=== PATIENT | male | born 1930 | race Caucasian/White ===

== ENCOUNTER 2016-10-01 10:58 | Inpatient (IN) | payer MEDICARE, OTHER ==
[~2016-10-01] VITALS: Ht 182.9 cm; Wt 96.9 kg
[2016-10-01] VITALS (9 sets, daily range): BP systolic 115–170; BP diastolic 58–91; PULSE 53–72; RESP 13–20; O2SAT 95–100
--- NOTE | 2016-10-01 10:34 | ED.REPORT ---
HPI-Chest Pain 40 and Over Date of Service October 01, 2016 ED Provider: Dr. Parish 86 y/o male with a hx of HTN, coronary disease and hyperlipidemia presents to the ED via EMS complaining of non-radiating chest pressure, onset 0700 today.The pt reports he fell asleep in his chair and woke up with the pain and extremely fatigued. The pt went to his doctor today for pre-surgery hernia repair consult when they took an EKG and found a new arrhythmia, LBBB. The EMS administered two doses of Nitroglycerin en route, after which his pain resolved. He states his pain was 3/10 this morning.Associated sx include fatigue and mild pain with deep breathing. He denies any modifying factors of the pain, palpitations, diaphoresis, nausea, dizziness and lightheadedness. He also has right leg edema, but that is not new. The pt reports he took TUMS, which did not improve his sx.He states he has been normal prior to today and has been able to carry out his daily activities. The pt took an Aspirin this morning. Nursing Notes Stated Complaint: CHEST PAIN Nursing Notes Reviewed: Yes ([employer], [employer] not reconciled) Allergies: Coded Allergies: No Known Allergies (Unverified , 10/01/16) Scheduled Aspirin Chew (Aspirin Chew) 81 Mg Chew 81 MG PO HS Atorvastatin (Lipitor) 10 Mg Tab 10 MG PO DAILY Carvedilol (Carvedilol) 25 Mg Tablet 25 MG PO BID Levothyroxine (Synthroid) 125 Mcg Tablet 125 MCG PO DAILY Lisinopril (Lisinopril) 20 Mg Tablet 20 MG PO DAILY Omeprazole (Omeprazole) 20 Mg Tablet.dr 20 MG PO BID Scheduled PRN Acetaminophen (Acetaminophen) 500 Mg Tablet 500 MG PO BID PRN PRN For Pain General Time Seen by MD: 10:34 Chief Complaint Chest pain Hx Obtained From: Patient Arrived By: Ambulance Sudden in Onset?: Yes Onset Occurred: 5 - 8 hours ago Location: : Chest left Quality: Painful Radiation: : Does not radiate Severity: Current: No pain currently Severity: Maximum: No pain Recent Healthcare: Recent doctor visit Similar Sx Previous: Yes Risk Factors )( CAD Risk Stratification Hypertension Risk factors reviewed Past Medical History Past Medical History Coronary disease with reportedly abnormal Lexiscan stress test April 2015 with a moderate sized area of ischemia involving the inferior wall, EF 52% Hypertension Hyperlipidemia New-onset left bundle branch block September 2016 sleep apnea on CPAP Hypothyroidism GERD History of "metabolic syndrome" Past Surgical History Cholecystectomy Hernia x2 Knee and foot ankle Smoking History Former Smoker Social History Drug Use: Denies drug use Other Social History: Good social support, Ambulatory Status Independent Review of Systems Constitutional: Reports: Fatigue Respiratory: Reports: Shortness of breath Cardiovascular: Reports: Chest pain, Denies: Palpitations GI: Denies: Nausea Skin: Denies Diaphoresis Neurologic: Denies: Dizziness, Lightheaded Complete sys rev & neg: except as marked. Physical Exam Initial Vital Signs Vital Signs (First) Date Time Temp Pulse Resp B/P Pulse Ox O2 Delivery O2 Flow Rate FiO2 10/01/16 11:05 36.5 53 18 167/91 100 Room Air Initial VS: Reviewed, Vital signs normal Head / Eyes: Atraumatic, Normocephalic, PERRL Neck: Supple, Full range of motion Extremities: Vascular intact, Neuro intact, No tenderness Skin: Warm, Dry, No cyanosis Neurologic: Alert, Oriented, Nonfocal General/Constitutional: Awake, Alert, No acute distress, Cooperative Respiratory / Chest: Atraumatic, Breath sounds NL, Breath sounds = bilat, No respiratory distress, No rales, No rhonchi, No wheezing Cardiovascular: Heart rate NL, Regular rhythm, Heart sounds NL, No gallop, No murmurs, No rubs Abdomen: Atraumatic, Soft, Non-tender Interpretation & Diagnostics PROCEDURE: US VEINOUS LEG DUPLEX UNILATERAL, RIGHT IMPRESSION: No deep venous thrombosis identified within the right lower extremity. Dictated by: Xavier Holcomb RRA Interpreted: Cee Nassar MD on 10/01/2016 at 12:36 Transcribed by: MAYTE on 10/01/2016 at 12:36 Lab Results Interpretation Result Diagram: 10/01/16 1215 10/01/16 1215 Test 10/01/16 12:15 White Blood Count 6.9th/mm3 (3.8-10.1) Red Blood Count 4.09mil/mm3 (4.40-5.80) Hemoglobin 12.5g/dL (13.8-17.2) Hematocrit 38.5% (41.0-50.0) Mean Corpuscular Volume 94.1fL (81-100) Mean Corpuscular Hemoglobin 30.6pg (27.0-35.0) Mean Corpuscular Hemoglobin Concent 32.5% (32.0-37.0) Red Cell Distribution Width 12.4% (12.3-15.4) Platelet Count 234bil/L (150-400) Neutrophils (%) (Auto) 63.0% (40-74) Lymphocytes (%) (Auto) 26.3% (14-46) Monocytes (%) (Auto) 8.0% (4-12) Eosinophils (%) (Auto) 2.2% (0-5) Basophils (%) (Auto) 0.4% (0-3) Sodium Level 139mEq/L (134-144) Potassium Level 5.0mEq/L (3.5-5.2) Chloride Level 104mEq/L (97-108) Carbon Dioxide Level 24mmol/L (18-29) Blood Urea Nitrogen 21mg/dL (8-27) Creatinine 1.12mg/dL (0.76-1.27) Estimat Glomerular Filtration Rate 66mL/min (>59) Glucose Level 108mg/dL (60-99) Calcium Level 9.2mg/dL (8.5-10.1) Magnesium Level 1.9mg/dL (1.6-2.6) Total Bilirubin 0.4mg/dL (0.0-1.2) Aspartate Amino Transf (AST/SGOT) 15U/L (0-50) Alanine Aminotransferase (ALT/SGPT) 9U/L (0-44) Alkaline Phosphatase 74U/L (25-160) Troponin T 0.010ug/L (0.0-0.011) Total Protein 6.5g/dL (6.4-8.4) Albumin 3.5g/dL (3.4-5.0) Hold José Top Tube Received (Received) Lab Results Interpretation: CBC normal CMP normal Troponin #1 negative ECG Interpretation ECG Interpretation: Sinus bradycardia. Rate 49 Left bundle branch block No changes as compared to pre-hospital EKG, which is the only EKG availble for comparison. Time: 11:19 Interpreted by: ED physician X-Ray Chest Interpretation Chest Xray Interpretation: IMPRESSION: Unusual appearance of the right lung with obscuration of the right heart border. While this appearance may be within normal limits for this patient, it may be seen in the setting of extensive atelectasis or lobar collapse. A standard 2-view chest radiograph would be helpful for better evaluation. Dictated by: Guerrero Veronica M.D. on 10/01/2016 at 11:10 Approved by: Guerrero Veronica M.D. on 10/01/2016 at 11:13 View: Portable, 1 view Interpretation / Wet Read by: Interpret - Radiologist Re-Eval/Medical Decision Med Decision/Clinical Course This is an 86-year-old male with known coronary disease followed by Dr. Worthington who lives on [facility] he was being evaluated preoperatively for a hernia repair, when on Thursday he had a EKG that demonstrated a new left bundle. At that time the plan was cancellation of the procedure, with cardiology referral planned. However then now developed intermittent bouts of left-sided chest discomfort that did not initially resolved to treatment at home, but resolved with nitroglycerin by EMS 2, and reoccurred in the emergency department with resolution with nitroglycerin 1 here. he otherwise appears well in no visible distress. He denies clear exertional component. His EKG does demonstrate and he a left bundle branch block. Not have any access to prior cardiograms. She does not meet Scar[place]orsi criteria. Patient nitro paste applied, as received aspirin prior to arrival by EMS. His HEART score places in a moderate risk so plan is admission for serial enzymes and further management. He did have a recurrence of his chest discomfort in the department, following resolution by nitroglycerin by EMS, and again it resolved with nitroglycerin use in the department. The patient is being admitted for continued management. He has had aspirin prior to arrival. The case is discussed with the hospitalist, who plans to talk with the webmethods consultant directly. Source of Hx: Old records (none in EMR) Time of Eval: 11:30 Patient Status: Condition improved Re-Evaluation/Progress Note: Rechecked pt. The pt reports his chest pain and discomfort has now resolved. Discussed lab, imaging results and plan to admit. Pt understands and agrees with the plan for admission. All questions addressed. Consultation : Referral / Consult Name: Chantell Alcantara Shanta DOMINGO Call Returned at: 13:35 Patch Worker: Will see patient, Agrees with eval, Agrees with plan, Accepts admit Differential Diagnosis: Positive: Chest pain, acute, Negative: Asthma exacerbation, Cholecystitis, Cholelithiasis, Congestive heart failure, Dysrhythmia, Esophageal rupture, Gun shot wound chest, Musculoskeletal pain, Pleurisy, Pneumomediastinum, Pneumonia, Pneumothorax, Pulmonary edema, Pulmonary embolism, Stab wound chest Counseled Regarding: Diagnosis, Lab results, Need for admission Discharge & Departure Primary Impression: Chest pain Chest pain type: unspecified Qualified Code: R07.9 - Chest pain, unspecified Additional Impression: New onset left bundle branch block (LBBB) Disposition: ADMITTED TO HOSPITAL Discharge Condition All VS Reviewed: Yes Scribe Attestation Portions of this note were transcribed by Tami Clinton. I, , personally performed the history, physical exam and medical decision-making;I reviewed and confirmed the accuracy of the information in the transcribed note. Signed by Paul Galvan. 10/01/16 1335 Tyler Parish MD October 01, 2016 10:34 Tami Clinton October 01, 2016 10:36
[2016-10-01] MEDS ORDERED: Nitroglycerin 2% 1 Gm Ointment TOPICAL SCH ×2 (11:15→13:25)
[2016-10-01] MEDS ORDERED: OMEP20CA11 PO (11:38)
[2016-10-01] MEDS ORDERED: ACET-171 PO (11:38)
[2016-10-01] MEDS ORDERED: ASPI81TA3 PO (11:38)
[2016-10-01] MEDS ORDERED: CARV25TA2 PO (11:38)
[2016-10-01] MEDS ORDERED: LEVO125T2 PO (11:38)
[2016-10-01] MEDS ORDERED: ATRV10T PO (11:38)
[2016-10-01] MEDS ORDERED: OMEP20TA86 PO (11:38)
[2016-10-01] MEDS ORDERED: LISI-567 PO (11:38)
--- NOTE | 2016-10-01 12:20 | DRSVH ---
PROCEDURE: X-RAY CHEST ONE VIEW, PORTABLE ([id number]) INDICATIONS: CHEST PAIN TECHNIQUE: One view of the chest was acquired. COMPARISON: None. FINDINGS: Surgical changes and devices: None. Lungs and pleura: The right heart border is obscured. No large area of consolidation or pleural effu fermin is evident. No pneumothorax is appreciated. Mediastinum: Mediastinal contours appear normal. Heart size is normal. Bones and chest wall: No suspicious bony lesions. Overlying soft tissues appear unremarkable. IMPRESSION: Unusual appearance of the right lung with obscuration of the right heart border. While t his appearance may be within normal limits for this patient, it may be seen in the setting of extensi ve atelectasis or lobar collapse. A standard 2-view chest radiograph would be helpful for better vlad luation. Dictated by: Guerrero Veronica M.D. on 10/01/2016 at 11:10 Approved by: Guerrero Veronica M.D. on 10/01/2016 at 11:13
[2016-10-01 12:22] LABS: BASOPHILS % (AUTO) 0.4 % (0-3); EOSINOPHILS % (AUTO) 2.2 % (0-5); Mean Corpuscular Hemoglobin 30.6 pg (27.0-35.0); Mean Corpuscular Volume 94.1 fL (81-100); Platelet Count 234 bil/L (150-400)
--- NOTE | 2016-10-01 12:36 | DRSVH ---
PROCEDURE: US VEINOUS LEG DUPLEX UNILATERAL, RIGHT INDICATIONS: RLE swelling TECHNIQUE: Real-time imaging, as well as color and pulse Doppler interrogation, were performed of the lower extr emity deep veins from the inguinal ligament to the popliteal fossa. COMPARISON: None. FINDINGS: The deep veins are normally compressible, and free of intraluminal thrombus. Color and pu lse Doppler demonstrate normal phasic intraluminal flow. There is normal augmentation response to di stal compression maneuver. IMPRESSION: No deep venous thrombosis identified within the right lower extremity. Dictated by: Xavier Holcomb [facility] Interpreted: Cee Nassar MD on 10/01/2016 at 12:36 Transcribed by: MAYTE on 10/01/2016 at 12:36 Approved by: Cee Nassar M.D. on 10/01/2016 at 17:48
[2016-10-01 12:58] LABS: TROPONIN T 0.01 ug/L (0.0-0.011)
[2016-10-01 13:09] LABS: Magnesium 1.9 mg/dL (1.6-2.6)
[2016-10-01] MEDS ORDERED: 0.9% Sodium Chloride 500 ML IV ONE (13:25)
[2016-10-01] MEDS ORDERED: Alum-Mag Hydrox-Simeth 30 mL Suspension PO PRN ×2 (14:00→17:10)
[2016-10-01] MEDS ORDERED: Ondansetron 2 mg/mL 2 mL Inj IVPUSH PRN ×2 (14:00→17:10)
[2016-10-01] MEDS ORDERED: Heparin 5,000 Unit/mL Inj IVPUSH ONE ×2 (14:35→15:05)
[2016-10-01] MEDS ORDERED: Heparin 25K Unit/500mL 0.45 NS 25,000 UNIT in IV Premix 1 EACH IV ONE ×2 (14:35→15:05)
[2016-10-01] MEDS ORDERED: diphenhydrAMINE 25 mg Capsule PO ONE (14:55)
[2016-10-01 15:21] LABS: APPEARANCE,URINE CLEAR (CLEAR,HAZY); COLOR,URINE YELLOW (YELLOW); OCCULT BLOOD,URINE NEGATIVE (NEGATIVE); PH,URINE 5.5 (5.0-8.0); UROBILINOGEN,URINE NORMAL (NORMAL)
--- NOTE | 2016-10-01 15:25 | CONS ---
[address] [address] CONSULTATION REPORT PATIENT: ANDRIY WILLIS : 1930 MR#: [id number] ADMIT: 10/01/2016 JOB ID: [id number] DATE OF SERVICE: 10/01/2016 CARDIOLOGY CONSULTATION: REASON FOR CONSULT: Hospitalist team asked me to see this patient regarding chest pain, left bundle branch block. CHIEF COMPLAINT: Chest pain. PRESENT HISTORY: This 86-year-old pleasant male who is a patient of Dr. Lawson from Cardiology, who has a known history of abnormal perfusion study in April 2015 for [id number] ischemia of the inferolateral wall with LV ejection fraction about 52%, on medical management at present, essential hypertension, hyperlipidemia, obstructive sleep apnea, got admitted because of episode of chest pain which happened this morning about 7 o'clock after him taking shower. It was pressure type. On a scale of 1-10, it was about 3-4 in intensity. It lasted longer duration. It did not get better by rest. He was feeling fatigued and tired. They decided to call 911. EMS gave him sublingual nitroglycerin which he responded to. He was placed on nitropaste. His chest pain subsided. At present, he is in the emergency department. He is not having any more chest pain. Denies any worsening with deep breathing. No fever, cough, expectoration. No nausea, vomiting, sweating but had some shortness of breath. According to the patient, he has bilateral inguinal hernia surgery and has had right inguinal hernia surgery in the past with recurrence. This last Thursday he was seen by PCP regarding preop clearance for inguinal hernia surgery and found to have left bundle branch block which is new. 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 The patient denies any stroke-like symptoms, PND, orthopnea or claudication or abdominal pain or active wheezing or hemoptysis or bleeding. According to him, he has bilateral inguinal hernia but he is not very symptomatic. He is not having incarcerated inguinal hernia. Denies any other upcoming surgeries. No bleeding issues. PAST MEDICAL HISTORY: History of abnormal perfusion study in April 2015 with [id number] ischemia of inferior lateral wall with LV ejection fraction 52% with essential hypertension, hyperlipidemia, obstructive sleep apnea, DJD, metabolic syndrome, GERD, hypothyroidism. PAST SURGICAL HISTORY: As stated above. ALLERGIES: No known allergies. MEDICATIONS AT HOME: He was on: 1. 81 mg aspirin. 2. Atorvastatin 10 mg daily. 3. Carvedilol 25 mg b.i.d. 4. Synthroid 125 mcg daily. 5. Lisinopril 20 mg daily. 6. Omeprazole 20 mg b.i.d. SOCIAL HISTORY: He used to smoke in the remote past, but at present, he is not smoking. No alcohol abuse. FAMILY HISTORY: Positive for coronary artery disease. REVIEW OF SYSTEMS: Ten point review of systems were obtained. They are negative except as stated above. PHYSICAL EXAMINATION: Blood pressure 117/59, heart rate 53, respiratory rate 15, oxygen saturation 95% and no significant anemia, jaundice. Neck: No apparent JVP or carotid bruit. Chest: No obvious crepitation or rhonchi. CVS: S1 appears normal. P2 paradoxically split. No S3. No S4. I do not appreciate any significant murmur other than very soft ejection systolic murmur at the base. Abdomen: No obvious pulsatile mass felt. Umbilicus is everted. No obvious hepatosplenomegaly. Extremities: No significant pedal edema. Vascular: No evidence of critical limb ischemia. [employer]: Alert, oriented to time, place and person. No focal motor or sensory deficit. LABORATORIES: Sodium 139, potassium 5.0, BUN 21, creatinine 1.12, magnesium 1.9 with normal bilirubin, AST, ALT. Troponin T 0.010. WBC 6.9, hemoglobin 12.5, platelets 234. EKG in the ED done today at about 11:19 a.m. revealed sinus rhythm with sinus bradycardia rate 49 with first-degree AV block with MO interval about 2.04 msec with underlying left bundle branch block which was seen on EKG on September 29, 2016 as well. Prior EKG revealed left anterior fascicular block. Lower extremity venous Doppler was negative for DVT. ASSESSMENT AND PLAN: 1. Unstable angina with history of abnormal perfusion study in April 2015 for [id number] ischemia of inferior lateral wall. 2. Left bundle branch block which is a new finding. 3. History of left anterior fascicular block in the past. 4. Essential hypertension. 5. Hyperlipidemia. 6. Obstructive sleep apnea. 7. Hypothyroidism. 8. Metabolic syndrome. 9. GERD. 10. Bilateral inguinal hernia. At present, the patient is chest pain free. His blood was drawn at around 12:15 p.m. He had a chest pain about 7 o'clock. His troponin first set normal. I do not think that left bundle branch block is a marker of anterior wall MS. I think it is a progression of left anterior fascicular block which was seen in the past. He is 86 years old. Likely, he has an underlying conduction problem. On top of that, he was on beta fabiano. However, he has known coronary artery disease based on abnormal perfusion study as well as ongoing risk factors. In view of symptoms, abnormal perfusion study and all the risk factors and age, left heart catheterization is recommended. Discussed the plan with the patient and his . They are willing to undergo invasive procedure in anticipation of revascularization. According to the patient, he can wait six months to one year for inguinal hernia surgery. He is not very symptomatic. He understands that if he gets drug-coated stent, he will not be able to have inguinal hernia surgery soon. Benefits and risks of left heart catheterization which include, but not limited to, risk of bleeding, groin complication, myocardial infarction, stroke, , renal insufficiency, peripheral vascular complication, etc. in details discussed with the patient and his . They verbalized understanding. All the questions were answered. I spoke to our turbinated bone grinder, Dr. Martin, as well. He will be available. Further plan will be based on the result of above-mentioned diagnostic tests. Will also get 2D echo. Meanwhile, we will recommend treating medically. If he gets stent, then he will need dual anti-platelet therapy. Consider anticoagulation. Because of sinus bradycardia, we are holding beta fabiano. However, down the road, if heart rate permits, we will consider beta fabiano. We will consider high intensity statin. Thanks for the cardiology consult. TOTAL TIME SPENT: Today including reviewing old charts and coordinating care as well about 75 minutes.
[2016-10-01 16:46] LABS: Creatine Kinase 61 U/L (21-232)
[2016-10-01] MEDS ORDERED: Senna-Docusate 8.6-50 mg Tablet PO PRN (17:10)
[2016-10-01] MEDS ORDERED: Atropine 1 mg/10 mL (Code) Syringe IVPUSH PRN (17:10)
[2016-10-01] MEDS ORDERED: Polyethylene Glycol (PEG) 17 Gm Powder PO PRN (17:10)
--- NOTE | 2016-10-01 17:56 | NUR ---
ADMIT PATIENT ADMITTED TO ROOM 2021. HE DENIES ANY CHEST DISCOMFORT. VITAL SIGNS STABLE. PATIENT'S AT BEDSIDE. PATIENT GAVE CONSENT FOR INFORMATION TO BE GIVEN TO DAUGHTER OVER PHONE. DAUGHTER LINDA DID CALL AND WAS GIVEN AN UPDATE. HOSPITALIST AND ADMINISTRATIVE OFFICER SEEING PATIENT NOW. PLAN FOR HEART CATH. TOMORROW.
--- NOTE | 2016-10-01 19:43 | PCM.HPMED ---
Subjective Date of Service October 01, 2016 Primary Provider: Admitting Physician: Chantell Alcantara DO Primary Care Physician: Vin Goddard MD Attending Physician: Chantell Alcantara DO Admit Status: From the Emergency Department Chief Complaint: "chest pain" History of Present Illness: Mr. Powell is in 86-year-old male with history of hypertension, coronary artery disease, hyperlipidemia, obstructive sleep apnea, hypothyroidism, and gastroesophageal reflux disease who presented to the emergency department via EMS complaining of non-radiating 3/10 chest pressure that started around 7:00 this morning and was steady until around 3 PM today. He states that he took a shower this morning and then started to feel fatigued and not like himself. He then sat in his chair and that is when the chest pressure started in the left pectoralis area. He also describes it as an ache. He states that as time went on the pain got worse. He had associated fatigue and dyspnea. He did not have palpitations, nausea, vomiting, diaphoresis, presyncopal episode, syncope, or increased swelling in his legs. He has had chest pain similar to this in the past, but this time it was different because he felt like he could not lift his arms up. His arms felt heavy. In the past, the chest pain he felt did not last this long either. He reports that about a year ago he had a workup for his heart that showed that the bottom part of his heart had blockages. His primary engraver hand soft metals is Dr. Lawson. He is going to see Dr. Lawson today for presurgical consultation because his primary care provider did an EKG on Thursday that showed a new left bundle branch block. He reports that he no longer has chest pain after receiving multiple doses of nitroglycerin. He does not have a headache, changes in vision, nasal congestion, sore throat, cough, abdominal pain, diarrhea, constipation, hematuria, hematochezia, melena, or numbness. Prior to coming to the emergency department, he received 2 doses of nitroglycerin by EMS and his pain resolved. In the emergency department, his chest pain returned but again was relieved by nitroglycerin. He had an aspirin prior to arrival to the hospital. Review of Systems: A comprehensive review of systems was conducted with the patient and found to be negative except as above in the History of Present Illness. Allergies Coded Allergies: No Known Allergies (Unverified , 10/01/16) Home Medications Aspirin Chew (Aspirin Chew) 81 Mg Chew 81 MG PO HS Atorvastatin (Lipitor) 10 Mg Tab 10 MG PO DAILY Carvedilol (Carvedilol) 25 Mg Tablet 25 MG PO BID Levothyroxine (Synthroid) 125 Mcg Tablet 125 MCG PO DAILY Q HS Lisinopril (Lisinopril) 20 Mg Tablet 20 MG PO BID Omeprazole (Omeprazole) 20 Mg Tablet.dr 20 MG PO BID Acetaminophen (Acetaminophen) 500 Mg Tablet 500 MG PO BID PRN PRN For Pain PMH Coronary artery disease based on abnormal Lexiscan stress test in April 2015 , ejection fraction 52% Hypertension Hyperlipidemia Left bundle branch block, new diagnosis Obstructive sleep apnea on CPAP Hypothyroidism Gastroesophageal reflux disease Surgical History Cholecystectomy with a second repair Right inguinal hernia repair twice Right knee and foot 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 External ears without defect. Pupils equal, round, and reactive to light and accommodation. Anicteric sclerae, moist conjunctivae, and no lid lag. Oropharynx free of erythema and cobble stoning with moist mucosa. Neck: Supple with full range of motion. No jugular venous distension. No lymphadenopathy or thyromegaly. Cardiovascular: Regular rate and rhythm with II/ systolic ejection murmurs with radiation to neck, No rubs or gallops appreciated Pulmonary: Clear to auscultation bilaterally with no crackles, wheezes, or rhonchi. Normal respiratory effort with no use of accessory muscles. Abdomen: Umbilical hernia, which is reducible and does not have any erythema or warmth. Bowel tones present. Soft, nontender, nondistended. No hepatosplenomegaly appreciated. Extremities: Trace right pitting lower extremity edema to mid anterior leg. No clubbing, cyanosis, or lymphadenopathy appreciated. Skin: Normal temperature, turgor, and texture; no rash, ulcers, or subcutaneous nodules appreciated. Neurological: Cranial nerves grossly intact. Normal muscle strength, tone, and bulk. Coordination and sensory function within normal limits. No known gait impairment. Psychiatric: Normal mood and affect. Alert and oriented to person, place, and time. Lab and Diagnostics Result Diagram: 10/01/16 1215 10/01/16 1215 X-Rays, CTs and MRIs PROCEDURE: X-RAY CHEST ONE VIEW, PORTABLE IMPRESSION: Unusual appearance of the right lung with obscuration of the right heart border. While this appearance may be within normal limits for this patient, it may be seen in the setting of extensive atelectasis or lobar collapse. A standard 2-view chest radiograph would be helpful for better evaluation. Approved by: Guerrero Veronica M.D. on 10/01/2016 at 11:13 12-lead ECG Sinus bradycardia with left bundle branch block Additional Diagnostics: PROCEDURE: US VEINOUS LEG DUPLEX UNILATERAL, RIGHT IMPRESSION: No deep venous thrombosis identified within the right lower extremity. Approved by: Cee Nassar M.D. on 10/01/2016 at 17:48 Assessment & Plan Mr. Powell is in 86-year-old male with history of hypertension, coronary artery disease, hyperlipidemia, obstructive sleep apnea, hypothyroidism, and gastroesophageal reflux disease who presented to the emergency department via EMS complaining of non-radiating 3/10 chest pressure that started around 7:00 this morning and was steady until around 3 PM today. Unstable angina, acute, present on admission, - History of abnormal perfusion study in April 2015 for [id number] ischemia of inferior lateral wall - Patient presented with acute worsening chest pain, which was relieved by nitroglycerin. EKG showed a new left bundle-branch block. Troponin was negative. - Right lower extremity venous duplex ultrasound showed no DVT. - Hemoglobin A1c and lipid panel ordered and pending - Patient was given a full dose aspirin by EMS and a loading dose of Plavix in the hospital - Nitroglycerin as needed for chest pain and morphine as needed for chest pain - Heparin drip per protocol - Aspirin 81 mg daily, atorvastatin 40 mg daily at bedtime, lisinopril 20 mg twice a day - Hold patient's home carvedilol due to his bradycardia, but will monitor heart rate and resume carvedilol when heart rate stable - Cardiology consulted and following. Their time and recommendations are appreciated. Patient is scheduled for left heart catheterization with coronary angiogram tomorrow. Echocardiogram ordered for tomorrow. - NPO after midnight Essential hypertension, chronic. - Continue lisinopril 20 mg twice a day as - Hold carvedilol for now Obstructive sleep apnea on CPAP, chronic. - Patient is unable to get his CPAP to the hospital from home - Put patient on a hospital CPAP for the night Hyperlipidemia, chronic. - Lipid panel pending - Increase atorvastatin to 40 mg at bedtime Hypothyroidism, chronic. - TSH within normal limits - Continue levothyroxine 125 g in the evening Gastroesophageal reflux disease, chronic. - Continue omeprazole 20 mg twice a day Bilateral inguinal hernia, chronic. Obscured right heart border on chest x-ray. -2 view chest x-ray tomorrow after procedure for further evaluation Acetaminophen as needed for pain or fever. Maalox as needed for heartburn MiraLAX and senna available as needed for constipation An as needed for nausea and vomiting CODE STATUS: CPR, cardioversion, defibrillation, BiPAP, medications, and fluids. DO NOT INTUBATE. Patient is admitted under observation status with expected length of stay less than 2 midnights due to risk of adverse event. GI Prophylaxis: Proton Pump Inhibitor VTE Prophylaxis: Other (heparin drip) Resuscitation Status: Limited Interventions Limited Interventions: Compressions, Cardioversion/Defibrillation, BiPAP, Medications and IV Fluid (DO NOT INTUBATE) Attending Statement The patient was seen and examined together with Dr. Godfrey on 10/01/2016 and I agree with the history, exam and plan as outlined in the note above. . copies to: Uri Lawson MD, Marissa L DO October 01, 2016 19:43 Imer Lira MD October 03, 2016 07:59
[2016-10-01] MEDS ORDERED: Heparin 25K Unit/500mL 0.45 NS 25,000 UNIT in IV Premix 1 EACH IV SCH (20:05)
--- NOTE | 2016-10-01 20:08 | NUR ---
Case Management: GERMANIA explained to patient at 1917, all questions answered. Signed original placed in chart, copy given to patient. Pt refused Medicare Part D Drug info stating he has . Yulisa Dodge RN
[2016-10-01] MEDS: Pantoprazole 20 mg ER24 Tablet PO SCH (21:16)
[2016-10-01 21:20] LABS: TROPONIN T < 0.010 ug/L (0.0-0.011)
[2016-10-01] MEDS: Heparin 5,000 Unit/mL Inj IVPUSH PRN (21:21)
[2016-10-01 21:28] LABS: Creatine Kinase 59 U/L (21-232)
[2016-10-02] VITALS (22 sets, daily range): BP systolic 109–171; BP diastolic 47–91; PULSE 51–85; RESP 13–24; O2SAT 92–100
[2016-10-02] MEDS: 0.9% Sodium Chloride 1,000 ML IV SCH ×4 (00:04→20:54)
[2016-10-02 02:38] LABS: BASOPHILS % (AUTO) 0.4 % (0-3); EOSINOPHILS % (AUTO) 2.5 % (0-5); MONOCYTES % (AUTO) 8.2 % (4-12); Mean Corpuscular Hemoglobin 31.3 pg (27.0-35.0); Mean Corpuscular Volume 93.9 fL (81-100); NEUTROPHILS % (AUTO) 62.5 % (40-74); Platelet Count 235 bil/L (150-400)
[2016-10-02 03:15] LABS: Creatine Kinase 55 U/L (21-232)
[2016-10-02] MEDS: Heparin 5,000 Unit/mL Inj IVPUSH PRN (03:39)
--- NOTE | 2016-10-02 05:51 | NUR ---
CP/NPO Pt stated that he was experiencing CP 3/10 that would come and go and felt as though it was increasing in frequency and pain level. EKG ordered and unremarkable and BP WNL. Pt CP resolved on it's own and no further complaints the rest of the shift. Pt has been NPO since 0000 for heart cath this am, Heparin gtt stopped at 0400. VSS and Tele SB/R 50-60's.
[2016-10-02] MEDS ORDERED: Heparin 1,000 Units/500 mL NS Premix IV ONE (07:15)
[2016-10-02] MEDS ORDERED: Heparin 5,000 Units/500 mL NS Premix IV ONE (07:15)
[2016-10-02] MEDS ORDERED: 0.9% Sodium Chloride 1,000 ML ONE (07:16)
[2016-10-02] MEDS ORDERED: Atropine 1 mg/10 mL (Code) Syringe ONE ×2 (07:17→09:30)
[2016-10-02] MEDS ORDERED: fentaNYL-PF 50 mCg/mL 2 mL Inj ONE (07:53)
[2016-10-02] MEDS ORDERED: diphenhydrAMINE 25 mg Capsule PO ONE (08:00)
[2016-10-02] MEDS ORDERED: Heparin 1,000 Unit/mL 10 mL Inj ONE (08:16)
[2016-10-02] MEDS ORDERED: hydrALAZINE 20 mg/mL Inj ONE (08:23)
--- NOTE | 2016-10-02 11:05 | NUR ---
ERIBERTO Patient care assumed at 0950. Report from Jessi MAHONEY. at bedside. No bleeding or hematoma at right groin perclose. Pedal pulses present. Patient denies pain. Nausea resolved. Transport by bed back to room 2021 at 1100. Report called to receiving RN.
[2016-10-02] MEDS: Pantoprazole 20 mg ER24 Tablet PO SCH ×2 (11:29→19:41)
--- NOTE | 2016-10-02 13:23 | NUR ---
Social Work: Initial Assessment D: Per EMR review, pt is an 86 year old male admitted for CP New L BBB. Pt is Medicare with for Life supplement; pt has no LTC insurance or VA benefits. PCP is Vin Goddard MD. NOK Is Shala Powell, , . Advanced directives completed and on chart. Readmit score is low, 05/25. LOAN ASSOCIATE met with pt and at bedside. Sw role explained and contact info provided. See initial assessment. Pt lives in [place] with his . He is I with ADLS at baseline and uses no DME. Pt continues to drive and has never had Home Health or Skilled Rehab. Pt and anticipate that pt will return home when medically stable and will not require any sw needs. Pt was down at the concrete laborer for a cardiac procedure this morning. Cardiology is following. A: Pt who is I at baseline. P: Anticipate pt to discharge home via POV once medically stable; LOAN ASSOCIATE to continue to follow if needs arise. ANNIE Ramsey Addendum: 10/02/16 at 1327 by MOODY YORK Amended: Links added.
--- NOTE | 2016-10-02 13:55 | DI95 ---
[place] [address] INTERVENTIONAL CARDIAC CATHETERIZATION PATIENT: ANDRIY WILLIS : 1930 MR#: [id number] ADMIT: 10/01/2016 JOB ID: [id number] DATE OF PROCEDURE: 10/02/2016 PATIENT PROFILE: The patient is an 86-year-old man who presented with acute coronary syndrome. PROCEDURE: 1. Balloon angioplasty and stenting to the mid right coronary artery. 2. Balloon angioplasty and stenting to the mid circumflex artery. VASCULAR CLOSURE DEVICE: Perclose. COMPLICATIONS: None. METHOD: Following diagnostic angiogram performed by Dr. Santillan, heparin 100 units/kg were given. A 6-Citizen Of [place] JR4 guide was advanced to the right coronary ostium. A Run-through wire was placed inside the right coronary artery. The mid right coronary artery lesion was pre-dilated with a 3.0 x 20 mm balloon. A Resolute 3.5 x 22 mm stent was placed inside the mid right coronary artery lesion and deployed at 20 atmospheres for 30 seconds. Final angiogram was obtained. The attention was then turned to the circumflex artery. A 6-Citizen Of [place] CLS 3.5 guide was advanced to the left coronary ostium. A Run-through wire was placed inside the circumflex artery. The lesion was pre-dilated with a 3.0 x 20 mm balloon. A Resolute Integrity 2.5 x 22 mm stent was placed inside the mid circumflex artery lesion and deployed at 18 atmospheres for 30 seconds. Final angiogram was obtained. Following sheath removal, hemostasis was achieved by using a Perclose device. The patient tolerated the procedure well. He was transferred to [facility] in good condition. TOTAL CONTRAST USED: 120 cc. FLUOROSCOPY TIME: 5.4 minutes. TOTAL RADIATION DOSE: 1104 mGy. RESULTS: 1. Successful balloon angioplasty and stenting to the tight culprit mid right coronary artery lesion by deploying one drug-eluting stent (3.5 x 22 mm) to achieve an excellent angiographic result with CHERYL-3 flow distally. 2. Successful balloon angioplasty and stenting to the severe mid circumflex artery lesion by deploying one drug eluting stent (2.5 x 22 mm) to achieve an excellent angiographic result with CHERYL-3 flow distally. [facility]
--- NOTE | 2016-10-02 14:58 | NUR ---
Post cath procedure Pt arrived back from cath procedure A&O X3 and answering questions appropriately. Groin site was observed by this RN and ERIBERTO RN. Soft with minimal sero-sanguinous drainage.Pt remained bedrest until 1300 and then got up and ambulated to the bathroom with no issues. Groin still looks the same upon returning to his bed. Pt proceeded to eat some lunch and then take a nap. VS 36.6 71 18 124/66 96% RA. Pedal pulses present bilaterally. No c/o pain or nausea. SR with PVCs. NS running at 80mls/hr. Pt states he feels ready to go home.
--- NOTE | 2016-10-02 16:31 | CS94 ---
[address] [address] DIAGNOSTIC CARDIAC CATHETERIZATION PATIENT: ANDRIY WILLIS : 1930 MR#: [id number] ADMIT: 10/01/2016 JOB ID: [id number] SERVICE DATE: 10/02/2016 INDICATION FOR LEFT HEART CATHETERIZATION: This 86-year-old, pleasant male who has a history of abnormal perfusion study with [id number] ischemia of inferior lateral wall with LV ejection fraction 52%, who was on medical management, hypertension hyperlipidemia, sleep apnea, presented with chest pain suggestive of unstable angina. In the hospital, the patient ruled out for acute myocardial infarction. The patient has history of left anterior fascicular block. Now he has developed left bundle branch block. Considering his risk factors, known abnormal perfusion study for CAD, worsening symptoms, it was decided to proceed with left heart catheterization in anticipation of revascularization. Benefits and risks, which include, but not limited to, risk of bleeding, groin complication, myocardial infarction, stroke, , renal insufficiency, and peripheral vascular complication, etc. in detail discussed with the patient and his . They verbalized their understanding. All their questions were answered. MOTORCYCLE RIDING INSTRUCTOR: Toribio Santillan MD PROCEDURE: 1. Left heart catheterization. 2. Coronary arteriography. 3. Left ventricular pressure measurement. DESCRIPTION OF PROCEDURE: The patient was brought to the cath laboratory in a stable condition. Right groin was cleaned, prepped, and draped in the usual sterile fashion. The skin and subcutaneous tissue was anesthetized with 1% lidocaine. Right femoral artery was accessed. A 6-[place] sheath was introduced into the right femoral artery using modified Seldinger technique. The left coronary artery and the right coronary artery were engaged with 6-[place] JL4 and JR4 catheters, respectively. Left ventricular pressure measurement was done with 6-[place]au[place] pigtail catheter. All the catheters were advanced over the guidewire and flushed with heparinized saline. All the exchanges were made over the guidewire. Total about 60 cc Isovue-370 dye was used. The patient tolerated the procedure well. There was no immediate complication. Sheath was left in for subsequent PCI of RCA and circumflex by Dr. Bowie. HEMODYNAMICS: Aortic pressure was 176/73, LV systolic pressure 176, LVEDP was about 15 mmHg. There was no significant pullback gradient between the aorta and left ventricle. Left ventriculography was not performed. We will get 2D echo to assess LV function. CORONARY ARTERY ANATOMY: 1. Left main artery: The left main artery has some calcification but was free of any significant disease. 2. LAD: LAD has calcification in the proximal portion. LAD and diagonal branches were free of any significant disease. 3. Left circumflex artery. The left circumflex artery is a nondominant artery; however it has about 60% to 70% long lesion in the mid portion. Overall it is a good size vessel. 4. Right coronary artery: The right coronary artery is a large dominant artery and harbors two discrete lesions in mid to distal portion. The more proximal lesion has about 60% to 70% and the second lesion has about 70% to 80% disease. CONCLUSION: Two-vessel disease involving mid portion of circumflex and mid to distal right coronary artery, which are stated as above. PLAN: I reviewed the case with our conveyor belt operator, Dr. Bowie, and he decided to intervene mid to distal RCA as well as circumflex lesion with percutaneous intervention.
--- NOTE | 2016-10-02 16:54 | PCM.PNMED ---
Subjective Date of Service October 02, 2016 Subjective Mr. Powell is in 86-year-old man with history of hypertension, coronary artery disease, hyperlipidemia, obstructive sleep apnea, hypothyroidism, and gastroesophageal reflux disease who presented to the emergency department via EMS complaining of non-radiating chest pressure. Today is hospital day 2. After his procedure, he states that he feels well. He had one episode of mild chest discomfort that lasted seconds. The access site is not painful. He is tired because he did not sleep well. Exam Vital Signs Vital Sign - Last Date Time Temp Pulse Resp B/P Pulse Ox O2 Delivery O2 Flow Rate FiO2 10/02/16 11:20 36.6 71 18 124/66 95 Room Air Intake and Output 10/01/16 10/01/16 10/02/16 Cumulative From/Thru 15:00 23:00 07:00 10/01/16 11:05 - 10/02/16 05:47 Intake Total 500 ml 400 ml 838 ml 1738 ml Output Total 200 ml 1150 ml 1350 ml Balance 300 ml 400 ml -312 ml 388 ml Intake Oral 400 ml 250 ml 650 ml IV Total 500 ml 588 ml 1088 ml Output Urine Total 200 ml 1150 ml 1350 ml # Voids 1 1 1 3 # Bowel Movements 0 0 Exam General: Elderly man lying comfortably in bed, No acute distress, well-developed , well-nourished, appropriately interactive HEENT: Normocephalic, atraumatic. External ears without defect. Pupils equal, round, and reactive to light and accommodation. Anicteric sclerae, moist conjunctivae, and no lid lag. Neck: Supple with full range of motion. Cardiovascular: Regular rate and rhythm with II/ systolic ejection murmurs with radiation to neck, No rubs or gallops appreciated Pulmonary: Clear to auscultation bilaterally with no crackles, wheezes, or rhonchi. Normal respiratory effort with no use of accessory muscles. Abdomen: Umbilical hernia. Bowel tones present. Soft, nontender, nondistended. Extremities: No clubbing, cyanosis, or edema appreciated. Skin: Normal temperature, turgor, and texture; no rash, ulcers, or subcutaneous nodules appreciated. Neurological: Cranial nerves grossly intact. No known gait impairment. Psychiatric: Normal mood and affect. Alert and oriented to person, place, and time. IVs and Medications Medications Reviewed: Medications were reviewed in detail Lab and Diagnostics Result Diagram: 10/02/16 1145 10/02/16 0225 X-Rays, CTs and MRIs PROCEDURE: X-RAY CHEST ONE VIEW, PORTABLE IMPRESSION: Unusual appearance of the right lung with obscuration of the right heart border. While this appearance may be within normal limits for this patient, it may be seen in the setting of extensive atelectasis or lobar collapse. A standard 2-view chest radiograph would be helpful for better evaluation. Approved by: Guerrero Veronica M.D. on 10/01/2016 at 11:13 12-lead ECG Sinus bradycardia with left bundle branch block Additional Diagnostics PROCEDURE: US VEINOUS LEG DUPLEX UNILATERAL, RIGHT IMPRESSION: No deep venous thrombosis identified within the right lower extremity. Approved by: Cee Nassar M.D. on 10/01/2016 at 17:48 Assessment & Plan Mr. Powell is in 86-year-old male with history of hypertension, coronary artery disease, hyperlipidemia, obstructive sleep apnea, hypothyroidism, and gastroesophageal reflux disease who presented to the emergency department via EMS complaining of non-radiating 3/10 chest pressure that started around 7:00 this morning and was steady until around 3 PM today. Unstable angina secondary to coronary artery disease, present on admission - Patient underwent a left heart catheterization with coronary angiogram with percutaneous intervention. He had balloon angioplasty and stenting to the mid right coronary artery and to the mid circumflex artery. - History of abnormal perfusion study in April 2015 for [id number] ischemia of inferior lateral wall - Patient presented with acute worsening chest pain, which was relieved by nitroglycerin. EKG showed a new left bundle-branch block. Troponin was negative. - Right lower extremity venous duplex ultrasound showed no DVT. - Hemoglobin A1c 6.2% and lipid panel showed LDL 40, HDL 35 - Patient was given aspirin by EMS and a loading dose of Plavix in the hospital - Nitroglycerin as needed for chest pain and morphine as needed for chest pain - Heparin drip discontinued - Aspirin 81 mg daily, atorvastatin 40 mg daily at bedtime, lisinopril 20 mg twice a day - Continue to patient's home carvedilol due to his initial bradycardia, but will monitor heart rate and resume carvedilol if heart rate remains stable - Cardiology consulted and following. Their time and recommendations are appreciated. Echocardiogram ordered. - Heart healthy diet Essential hypertension, chronic. - Continue lisinopril 20 mg twice a day - Hold carvedilol for now Obstructive sleep apnea on CPAP, chronic. - Patient is unable to get his CPAP to the hospital from home - Place patient on a hospital CPAP for the night Hyperlipidemia, chronic. - Lipid panel as above - Continue increased atorvastatin to 40 mg at bedtime Hypothyroidism, chronic. - TSH within normal limits - Continue levothyroxine 125 g in the evening Gastroesophageal reflux disease, chronic. - Continue omeprazole 20 mg twice a day Bilateral inguinal hernia, chronic. Obscured right heart border on chest x-ray. -2 view chest x-ray tomorrow for further evaluation Acetaminophen as needed for pain or fever. Maalox as needed for heartburn MiraLAX and senna available as needed for constipation An as needed for nausea and vomiting CODE STATUS: CPR, cardioversion, defibrillation, BiPAP, medications, and fluids. DO NOT INTUBATE. Disposition: Anticipated discharge home tomorrow. Pain Evaluation: Adequate Pain Control GI Prophylaxis: Proton Pump Inhibitor VTE Prophylaxis: Other (heparin drip) Resuscitation Status: Limited Interventions Limited Interventions: Compressions, Cardioversion/Defibrillation, BiPAP, Medications and IV Fluid (DO NOT INTUBATE) Attending Statement The patient was seen and examined together with Dr. Godfrey on 10/02/2016 and I agree with the history, exam and plan as outlined in the note above. . Alexandra Godfrey DO October 02, 2016 15:54 Imer Lira MD October 03, 2016 08:00
--- NOTE | 2016-10-03 01:28 | NUR ---
GROIN SITE Pt had an uneventful night. Groin site had no signs of hematoma, dressing CDI. VVS, no pain, ready for discharge home in the AM.
[2016-10-03 03:08] LABS: BASOPHILS % (AUTO) 0.2 % (0-3); EOSINOPHILS % (AUTO) 2.1 % (0-5); MONOCYTES % (AUTO) 10.6 % (4-12); Mean Corpuscular Hemoglobin 31.1 pg (27.0-35.0); Mean Corpuscular Volume 94.1 fL (81-100); NEUTROPHILS % (AUTO) 68.5 % (40-74); Platelet Count 211 bil/L (150-400)
[2016-10-03 03:29] VITALS: BP 141/82; PULSE 60; RESP 18; O2SAT 95
[2016-10-03 06:11] VITALS: PULSE 63
[2016-10-03 08:00] VITALS: PULSE 66
[2016-10-03] MEDS: Pantoprazole 20 mg ER24 Tablet PO SCH (08:05)
[2016-10-03 09:22] VITALS: BP 159/86; PULSE 73; RESP 18; O2SAT 94
--- NOTE | 2016-10-03 09:48 | DRSVH ---
PROCEDURE: X-RAY CHEST, TWO VIEWS ([id number]) INDICATIONS: obscured right heart border on 1 view xray TECHNIQUE: 2 views of the chest were acquired. COMPARISON: [facility], CR, CHEST 1 VIEW, 12/12/2013, 11:45. [facility], CR, XR [address] 1VW (PORTABLE), 10/01/2016, 11:32. FINDINGS: Surgical changes and devices: None. Lungs and pleura: No pleural effusions or pneumothorax. Lungs are clear. Mediastinum: Mediastinal contours are normal. Heart size is normal. Large hiatal hernia as before Bones and chest wall: No suspicious bony abnormalities. Soft tissues appear unremarkable. IMPRESSION: Large hiatal hernia. Diffuse interstitial disease. No acute consolidation. Dictated by: Matti Alves M.D. on 10/03/2016 at 9:43 Approved by: Matti Alves M.D. on 10/03/2016 at 9:47
[2016-10-03] MEDS ORDERED: MeTOProlol XL 25 mg ER24 Tablet PO SCH (10:05)
--- NOTE | 2016-10-03 10:44 | PROG NOTE ---
[address] [address] PROGRESS NOTE PATIENT: ANDRIY WILLIS : 1930 MR#: [id number] ADMIT: 10/01/2016 JOB ID: [id number] DATE: 10/03/2016 SUBJECTIVE: The patient is feeling better. No active chest pain or worsening shortness of breath, PND, orthopnea, groin pain or new cardiovascular symptoms. OBJECTIVE: Blood pressure 159/86, heart rate 73, respiratory rate 18, oxygen saturation on room air 94%. Neck: No apparent JVD. Chest: No obvious crepitation or rhonchi. CVS: S1, S2 normal. No S3, no S4. No new murmur. Abdomen: No obvious pulsatile mass. Right groin examination did not reveal any significant hematoma, bruit or pulsatile mass. Extremities: No significant pedal edema. Vascular: No evidence of critical limb ischemia. CAMPUS SECURITY OFFICER: Alert, oriented to time, place, and person. Telemetry: Sinus rhythm, with some PVCs with underlying left bundle branch block without any significant brandon or sustained tachyarrhythmias. LABORATORIES: Sodium 141, potassium 4.4, BUN 19, creatinine 1.17. Hemoglobin 11.6, platelets 211, WBC 8.6. ASSESSMENT AND PLAN: Unstable angina. The patient ruled out for acute myocardial infarction. Abnormal perfusion study with [id number] ischemia of the inferolateral wall, status post left heart catheterization yesterday which revealed about 60-70% long mid circumflex and two discrete lesions in the right coronary artery in mid to distal portion. The proximal 60-70% and more distal 70-80%, status post drug-coated stent placement to the RCA as well as circumflex. The patient received one 3.5 x 22 mm drug-coated stent to the mid to distal RCA, and 2.5/22 mm stent to the mid circumflex. Clinically, the patient appears compensated. No obvious groin complication. He has underlying left bundle branch block. No history of hypertension, hyperlipidemia, sleep apnea. At the time of admission, he was having sinus bradycardia, which has improved. Likely due to ischemia from the right coronary artery. In his case, benefits of beta fabiano exceeds the risk. Will recommend now very small dose of beta fabiano, that is metoprolol succinate 12.5 mg daily. Aspirin, Plavix for one year. Continue ASHLEY inhibitor and high intensity statin. Need for aspirin, Plavix and other medical therapy and medications discussed with the patient and his . Groin care discussed. Advised them to call us if there is any groin problem. From cardiac perspective, he can discharge home. The patient is going to have echocardiogram as well. During perfusion study, LV ejection fraction reported to be 52%. From Cardiology perspective, at this point of time, Cardiology will sign off. The patient is to see his financial coach, Dr. Lawson, as an outpatient. TOTAL TIME SPENT: Today, about 30 minutes.
--- NOTE | 2016-10-03 10:46 | PCM.DIMED ---
Alexandra Godfrey DO 10/03/16 0727: Discharge Instructions Date of Service October 03, 2016 Dates of Hospitalization October 01, 2016 at 15:39 Discharge Diagnosis Discharge Diagnosis Coronary artery disease (blockages in the arteries of your heart) High blood pressure Sleep apnea High cholesterol Hypothyroidism Gastroesophageal reflux disease Bilateral inguinal hernias Diet Heart Healthy Activity Limited until seen by PCP Call your provider Fever or Chills, Shortness of breath, Bleeding, Chest pain, Vomitting, Excessive diarrhea, Weakness (unilateral), Other (swelling at the groin access site) Patient Instructions There have been changes to your medications. Please stop taking carvedilol. We increased the dose of atorvastatin to 40 mg once daily at bedtime. You should start taking clopidogrel 75 mg once daily, and it is very important to not miss doses of this medication. Start metoprolol 12.5 mg once per day. Continue all other medications including lisinopril 20 mg twice per day as previously prescribed. You will need to take aspirin and clopidogrel daily for 1 year. Follow up with your primary care provider in 7-10 days. You should have a follow up complete metabolic panel in 1 week to review with your primary care provider. You can also review the increased atorvastatin dose at that time. Follow up with cardiology in clinic in 4 weeks. You will need to contact Dr. Lawson's office today or next Thursday about getting an echocardiogram as an outpatient since you requested deferring this study until a later time. Follow-up Provider: Vin Goddard MD Follow-up with PCP in: 1 week Provider: Uri Lawson MD Follow-up in: 4 weeks Imer Lira MD 10/04/16 1457: Discharge Instructions Attending's Statement The patient was seen and examined together with Dr. Godfrey on 10/03/2016 and I agree with the history, exam and plan as outlined in the note above. . Alexandra Godfrey DO October 03, 2016 07:27 Imer Lira MD October 04, 2016 14:57
[2016-10-03] MEDS ORDERED: CLOP75TA28 PO (10:49)
[2016-10-03] MEDS ORDERED: ATOR40TA69 PO (10:49)
[2016-10-03] MEDS ORDERED: METO25TA99 PO (10:49)
[2016-10-03] MEDS ORDERED: NITR0.4T6 SL (12:54)
--- NOTE | 2016-10-03 13:19 | NUR ---
Discharge Pt declined to have an echo performed this afternoon since it was taking longer than expected. Echo and MD alerted. UA helped set up appointment for follow-up outpatient echo. Pt's 2 IVs were removed. Telemetry was removed. Pt took a shower. Education was provided and discharge packet was given to patient. Patient and this RN signed the final page. Patient and demonstrated understanding of teaching. Pt was given all new prescriptions and additionally was given a prescription for Nitroglycerin by MD. Pt left at 1300 with all personal belongings with and assisted by a staff member.
--- NOTE | 2016-10-04 19:48 | PCM.DC.MED ---
Discharge Summary Date of Service October 03, 2016 Dates of Hospitalization Date of Hospital Admission October 01, 2016 at 15:39 Date of Discharge: October 03, 2016 Providers: Admitting Physician: Chantell Alcantara DO Primary Care Physician: Vin Goddard MD Attending Physician: Chantell Alcantara DO Diagnosis at Time of Discharge Diagnosis at Time of Discharge Unstable angina secondary to coronary artery disease, present on admission Essential hypertension, chronic. Obstructive sleep apnea on CPAP, chronic. Hyperlipidemia, chronic. Hypothyroidism, chronic. Gastroesophageal reflux disease, chronic. Bilateral inguinal hernia, chronic. Obscured right heart border on chest x-ray, resolved. Procedures XRay, CTs & MRIs PROCEDURE: X-RAY CHEST ONE VIEW, PORTABLE IMPRESSION: Unusual appearance of the right lung with obscuration of the right heart border. While this appearance may be within normal limits for this patient, it may be seen in the setting of extensive atelectasis or lobar collapse. A standard 2-view chest radiograph would be helpful for better evaluation. Approved by: Guerrero Veronica M.D. on 10/01/2016 at 11:13 PROCEDURE: X-RAY CHEST, TWO VIEWS IMPRESSION: Large hiatal hernia. Diffuse interstitial disease. No acute consolidation. Approved by: Matti Alves M.D. on 10/03/2016 at 9:47 ECG 12 Lead Sinus bradycardia with left bundle branch block Other Diagnostics PROCEDURE: US VEINOUS LEG DUPLEX UNILATERAL, RIGHT IMPRESSION: No deep venous thrombosis identified within the right lower extremity. Approved by: Cee Nassar M.D. on 10/01/2016 at 17:48 Brief History From the history and physical performed by Dr. Alexandra Godfrey on 10/01/2016: Mr. Powell is in 86-year-old male with history of hypertension, coronary artery disease, hyperlipidemia, obstructive sleep apnea, hypothyroidism, and gastroesophageal reflux disease who presented to the emergency department via EMS complaining of non-radiating 3/10 chest pressure that started around 7:00 this morning and was steady until around 3 PM today. He states that he took a shower this morning and then started to feel fatigued and not like himself. He then sat in his chair and that is when the chest pressure started in the left pectoralis area. He also describes it as an ache. He states that as time went on the pain got worse. He had associated fatigue and dyspnea. He did not have palpitations, nausea, vomiting, diaphoresis, presyncopal episode, syncope, or increased swelling in his legs. He has had chest pain similar to this in the past, but this time it was different because he felt like he could not lift his arms up. His arms felt heavy. In the past, the chest pain he felt did not last this long either. He reports that about a year ago he had a workup for his heart that showed that the bottom part of his heart had blockages. His primary electronic industrial controls mechanic is Dr. Lawson. He is going to see Dr. Lawson today for presurgical consultation because his primary care provider did an EKG on Thursday that showed a new left bundle branch block. He reports that he no longer has chest pain after receiving multiple doses of nitroglycerin. He does not have a headache, changes in vision, nasal congestion, sore throat, cough, abdominal pain, diarrhea, constipation, hematuria, hematochezia, melena, or numbness. Prior to coming to the emergency department, he received 2 doses of nitroglycerin by EMS and his pain resolved. In the emergency department, his chest pain returned but again was relieved by nitroglycerin. He had an aspirin prior to arrival to the hospital. Hospital Course Mr. Powell is in 86-year-old male with history of hypertension, coronary artery disease, hyperlipidemia, obstructive sleep apnea, hypothyroidism, and gastroesophageal reflux disease who presented to the emergency department via EMS complaining of non-radiating 3/10 chest pressure that started around 7:00 this morning and was steady until around 3 PM today. Unstable angina secondary to coronary artery disease, present on admission - Patient underwent a left heart catheterization with coronary angiogram with percutaneous intervention. He had balloon angioplasty and stenting to the mid right coronary artery and to the mid circumflex artery. - History of abnormal perfusion study in April 2015 for [id number] ischemia of inferior lateral wall - Patient presented with acute worsening chest pain, which was relieved by nitroglycerin. EKG showed a new left bundle-branch block. Troponin was negative. - Right lower extremity venous duplex ultrasound showed no DVT. - Hemoglobin A1c 6.2% and lipid panel showed LDL 40, HDL 35 - Patient was given aspirin by EMS and a loading dose of Plavix in the hospital - Nitroglycerin was available as needed for chest pain and morphine as needed for chest pain - Heparin drip was discontinued after left heart catheterization - Continued aspirin 81 mg daily, atorvastatin 40 mg daily at bedtime, lisinopril 20 mg twice a day - Discontinued patient's home carvedilol due to his initial bradycardia but started metoprolol 12.5 mg ER once daily - Cardiology consulted and followed. Their time and recommendations were appreciated. Echocardiogram ordered but patient declined to wait for it to be done while in the hospital prior to discharge and that it instead be done as an outpatient. He did not have any signs of acute heart failure or any new heart murmurs on exam. Essential hypertension, chronic. - Continued lisinopril 20 mg twice a day - Metoprolol succinate 12.5 mg once daily Obstructive sleep apnea on CPAP, chronic. -Continued CPAP Hyperlipidemia, chronic. - Lipid panel as above - Increased atorvastatin to 40 mg at bedtime Hypothyroidism, chronic. - TSH within normal limits - Continued levothyroxine 125 g in the evening Gastroesophageal reflux disease, chronic. - Continued omeprazole 20 mg twice a day Bilateral inguinal hernia, chronic. Obscured right heart border on chest x-ray, resolved. -2 view chest x-ray showed a large hiatal hernia as above In summary, Mr. Powell is an 86-year-old male with history of hypertension, coronary artery disease, hyperlipidemia, obstructive sleep apnea, hypothyroidism , and gastroesophageal reflux disease who presented to the emergency department via EMS complaining of chest pressure. He underwent a left heart catheterization with coronary angiogram with percutaneous intervention. He had balloon angioplasty and stenting to the mid right coronary artery and to the mid circumflex artery. On day of discharge, he did not have chest pain, dyspnea , or leg edema. His vital signs were stable. His right femoral catheterization insertion site was stable and did not have a palpable hematoma. Exam Vital Signs (Last) Date Time Temp Pulse Resp B/P Pulse Ox O2 Delivery O2 Flow Rate FiO2 10/03/16 09:22 36.6 73 18 159/86 94 Room Air Exam General: Elderly man lying comfortably in bed, No acute distress, well-developed , well-nourished, appropriately interactive HEENT: Normocephalic, atraumatic. External ears without defect. Pupils equal, round, and reactive to light and accommodation. Anicteric sclerae, moist conjunctivae, and no lid lag. Neck: Supple with full range of motion. Cardiovascular: Regular rate and rhythm with II/ systolic ejection murmurs with radiation to neck, No rubs or gallops appreciated Pulmonary: Clear to auscultation bilaterally with no crackles, wheezes, or rhonchi. Normal respiratory effort with no use of accessory muscles. Abdomen: Umbilical hernia. Bowel tones present. Soft, nontender, nondistended. Extremities: No clubbing, cyanosis, or edema appreciated. Skin: Mild ecchymosis at right femoral access site without palpable hematoma or thrill. Normal temperature, turgor, and texture; no rash, ulcers, or subcutaneous nodules appreciated. Neurological: Cranial nerves grossly intact. No known gait impairment. Psychiatric: Normal mood and affect. Alert and oriented to person, place, and time. Test 10/01/16 12:15 10/01/16 14:40 10/01/16 21:50 10/02/16 02:25 Hemoglobin A1c 6.2% (4.8-5.6) Magnesium Level 1.9mg/dL (1.6-2.6) Total Bilirubin 0.4mg/dL (0.0-1.2) Aspartate Amino Transf (AST/SGOT) 15U/L (0-50) Alanine Aminotransferase (ALT/SGPT) 9U/L (0-44) Alkaline Phosphatase 74U/L (25-160) Total Protein 6.5g/dL (6.4-8.4) Albumin 3.5g/dL (3.4-5.0) Thyroid Stimulating Hormone (TSH) 2.340uIU/mL (0.450-4.500) Hold José Top Tube Received (Received) Urine Color Yellow (YELLOW) Urine Appearance Clear (CLEAR,HAZY) Urine pH 5.5 (5.0-8.0) Urine Specific [place] 1.025 (1.003-1.035) Urine Protein Negativemg/dL (NEG,TRACE) Urine Glucose (UA) Negativemg/dL (NEGATIVE) Urine Ketones Negativemg/dL (NEGATIVE) Urine Occult Blood Negative (NEGATIVE) Urine Nitrite Negative (NEGATIVE) Urine Bilirubin Negative (NEGATIVE) Urine Urobilinogen Normalmg/dL (NORMAL) Urine Leukocyte Esterase Negative (NEGATIVE) Urine RBC 0-2/hpf (0-2) Urine WBC 0-5/hpf (0-5) Urine Epithelial Cells Occasional/hpf (NONE-MOD) Urine Crystals None seen (NONE SEEN) Urine Bacteria None/hpf (NONE-FEW) Urine Hyaline Casts None/lpf (NONE) Urine Granular Casts None seen (NONE SEEN) Urine Waxy Casts None seen (NONE SEEN) Urine Red Blood Cell Casts None seen (NONE SEEN) Urine White Blood Cell Casts None seen (NONE SEEN) Urine Mucus Present (None Seen) Urine Trichomonas None seen (NONE SEEN) Urine Yeast None (NONE SEEN) Urinalysis Comment None Urine Culture Reflexed Not indicated Hold Urine Received (Received) Total Creatine Kinase 55U/L (21-232) Creatine Kinase MB 1.9ng/mL (0.0-10.4) Creatine Kinase MB % % (0.0-5.0) Troponin T 0.010ug/L (0.0-0.011) Triglycerides Level 152mg/dL (0-149) Cholesterol Level 106mg/dL (100-199) LDL Cholesterol, Calculated 40.600mg/dL (0-99) VLDL Cholesterol 30.400mg/dL HDL Cholesterol 35mg/dL (>39) Cholesterol/HDL Ratio 3.03 (0.0-4.4) Test 10/02/16 11:45 10/03/16 02:47 Activated Partial Thromboplast Time 54.8sec (22.8-33.0) White Blood Count 8.6th/mm3 (3.8-10.1) Red Blood Count 3.73mil/mm3 (4.40-5.80) Hemoglobin 11.6g/dL (13.8-17.2) Hematocrit 35.1% (41.0-50.0) Mean Corpuscular Volume 94.1fL (81-100) Mean Corpuscular Hemoglobin 31.1pg (27.0-35.0) Mean Corpuscular Hemoglobin Concent 33.0% (32.0-37.0) Red Cell Distribution Width 12.6% (12.3-15.4) Platelet Count 211bil/L (150-400) Neutrophils (%) (Auto) 68.5% (40-74) Lymphocytes (%) (Auto) 18.3% (14-46) Monocytes (%) (Auto) 10.6% (4-12) Eosinophils (%) (Auto) 2.1% (0-5) Basophils (%) (Auto) 0.2% (0-3) Sodium Level 141mEq/L (134-144) Potassium Level 4.4mEq/L (3.5-5.2) Chloride Level 106mEq/L (97-108) Carbon Dioxide Level 24mmol/L (18-29) Blood Urea Nitrogen 19mg/dL (8-27) Creatinine 1.17mg/dL (0.76-1.27) Estimat Glomerular Filtration Rate 63mL/min (>59) Glucose Level 132mg/dL (60-99) Calcium Level 8.9mg/dL (8.5-10.1) Discharge Medications Discharge Medications Aspirin Chew (Aspirin Chew) 81 Mg Chew 81 MG PO DAILYWD (Reported) Atorvastatin Calcium (Atorvastatin Calcium) 40 Mg Tablet 40 MG PO HS (Reported) Clopidogrel (Clopidogrel) 75 Mg Tablet 75 MG PO DAILY Prescribed by: ALEXANDRA GODFREY DO Levothyroxine (Synthroid) 125 Mcg Tablet 125 MCG PO QAM (Reported) Lisinopril (Lisinopril) 20 Mg Tablet 20 MG PO BID (Reported) Metoprolol Succinate ER (Metoprolol Succinate ER) 25 Mg Tab.er.24h 12.5 MG PO DAILY Prescribed by: ALEXANDRA GODFREY DO Omeprazole (Omeprazole) 20 Mg Tablet.dr 20 MG PO BIDWM (Reported) As needed Acetaminophen (Acetaminophen) 500 Mg Tablet 1,000 MG PO Q6H PRN PRN For Pain ( Reported) Nitroglycerin SL (Nitroglycerin SL) 0.4 Mg Tab.subl 0.4 MG SL Q5MIN PRN PRN For Chest Pain 1 tab under tongue at onset chest pain. Call doctor. Repeat every 5 min if pain persists x total of 3 doses in 15 min Prescribed by: TIFFANY CUNNINGHAM DO Followup Plan Discharge Diet: Heart Healthy Discharge Activity: Limited until seen by PCP Patient Instructions There have been changes to your medications. Please stop taking carvedilol. We increased the dose of atorvastatin to 40 mg once daily at bedtime. You should start taking clopidogrel 75 mg once daily, and it is very important to not miss doses of this medication. Start metoprolol 12.5 mg once per day. Continue all other medications including lisinopril 20 mg twice per day as previously prescribed. You will need to take aspirin and clopidogrel daily for 1 year. Follow up with your primary care provider in 7-10 days. You should have a follow up complete metabolic panel in 1 week to review with your primary care provider. You can also review the increased atorvastatin dose at that time. Follow up with cardiology in clinic in 4 weeks. You will need to contact Dr. Lawson's office today or next Thursday about getting an echocardiogram as an outpatient since you requested deferring this study until a later time. Follow-up Provider: Vin Goddard MD Follow-up with PCP in: 1 week Provider: Uri Lawson MD Follow-up in: 4 weeks Time spent Greater than 30 minutes was spent in preparation of discharge with greater than 50% of that time dedicated to patient counseling and coordination of care. . Attending Statement The patient was seen and examined together with Dr. Godfrey on 10/03/2016 and I agree with the history, exam and plan as outlined in the note above. . copies to: Vickey Bowie MD; Uri Lawson MD; Vin Goddard MD, Marissa L DO October 03, 2016 21:59 Imer Lira MD October 06, 2016 15:35
== END 2016-10-03 13:00 | disposition home or self-care (01) | DRG 247 ==
LOC: SED 10:58 → MPC 13:33 → UNDOADMOB 13:33 → SAS 14:48 → PCC 15:39 → OBSVTOIN 15:39
PROVIDERS: ADMIT Neuromusculoskeletal Medicine & OMM; ATTEND Internal Medicine
PROC: 027135Z Dilation of Coronary Artery, Two Arteries with Two Drug-eluting Intraluminal Devices, Percutaneous Approach (ICD-10-PCS; principal; 2016-10-02)
PROC: 4A023N7 Measurement of Cardiac Sampling and Pressure, Left Heart, Percutaneous Approach (ICD-10-PCS; 2016-10-02)
PROC: B2111ZZ Fluoroscopy of Multiple Coronary Arteries using Low Osmolar Contrast (ICD-10-PCS; 2016-10-02)
DX: I25.110 Atherosclerotic heart disease of native coronary artery with unstable angina pectoris (principal); I10 Essential (primary) hypertension; G47.33 Obstructive sleep apnea (adult) (pediatric); E78.5 Hyperlipidemia, unspecified; E03.9 Hypothyroidism, unspecified; K21.9 Gastro-esophageal reflux disease without esophagitis; K40.20 Bilateral inguinal hernia, without obstruction or gangrene, not specified as recurrent; Z87.891 Personal history of nicotine dependence

== ENCOUNTER 2016-10-05 19:35 | Observation (INO) | payer MEDICARE, OTHER ==
[~2016-10-05] VITALS: Ht 180.3 cm; Wt 95.0 kg
[2016-10-05 19:35] VITALS: BP 191/82; PULSE 63; RESP 17; O2SAT 97
[~2016-10-05 19:35] MED LIST: ACET-171 PO; ASPI81TA3 PO; ATOR40TA69 PO; ATRV10T PO; CARV25TA2 PO; CLOP75TA28 PO; LEVO125T2 PO; LISI-567 PO; METO25TA99 PO; NITR0.4T6 SL; OMEP20CA11 PO; OMEP20TA86 PO
--- NOTE | 2016-10-05 19:37 | ED.REPORT ---
HPI-Extremity Problem Upper Date of Service October 05, 2016 ED Provider: Dr. Romo Pt is an 86 year old male with newly placed STENTs who presents to the ED via EMS with concerns for intermittent, sharp right shoulder pain. This pain is not exacerbated with any movement. He denies any cough, shortness of breath, chest pain or injury to this extremity. Nursing Notes Stated Complaint: RIGHT SHOULDER PAIN Chief Complaint: CP Nursing Notes Reviewed: Yes Allergies: Coded Allergies: No Known Allergies (Unverified , 10/05/16) Scheduled Aspirin Chew (Aspirin Chew) 81 Mg Chew 81 MG PO DAILYWD Atorvastatin Calcium (Atorvastatin Calcium) 40 Mg Tablet 40 MG PO HS Clopidogrel (Clopidogrel) 75 Mg Tablet 75 MG PO DAILY Levothyroxine (Synthroid) 125 Mcg Tablet 125 MCG PO QAM Lisinopril (Lisinopril) 20 Mg Tablet 20 MG PO BID Metoprolol Succinate ER (Metoprolol Succinate ER) 25 Mg Tab.er.24h 12.5 MG PO DAILY Omeprazole (Omeprazole) 20 Mg Tablet.dr 20 MG PO BIDWM Scheduled PRN Acetaminophen (Acetaminophen) 500 Mg Tablet 1,000 MG PO Q6H PRN PRN For Pain Nitroglycerin SL (Nitroglycerin SL) 0.4 Mg Tab.subl 0.4 MG SL Q5MIN PRN PRN For Chest Pain 1 tab under tongue at onset chest pain. Call doctor. Repeat every 5 min if pain persists x total of 3 doses in 15 min General Time Seen by MD: 19:37 Chief Complaint Shoulder injury right Hx Obtained From: Patient Arrived By: Walk-in Onset Occurred: 1 day ago Symptom Duration: Intermittent Location: : Shoulder right Severity: Current: No pain currently Severity: Maximum: Moderate Similar Sx Previous: Yes Past Medical History Past Medical History Coronary disease with reportedly abnormal Lexiscan stress test April 2015 with a moderate sized area of ischemia involving the inferior wall, EF 52% Hypertension Hyperlipidemia New-onset left bundle branch block September 2016 sleep apnea on CPAP Hypothyroidism GERD History of "metabolic syndrome" Past Surgical History Cholecystectomy Hernia x2 Knee and foot ankle Smoking History Former Smoker Social History Drug Use: Denies drug use Other Social History: Good social support, Ambulatory Status Independent Review of Systems Constitutional: Denies: Chills, Fever, Malaise, Weakness - generalized Musculoskeletal: Reports: Extremity pain, Denies: Neck pain Skin: Denies Diaphoresis Neurologic: Denies: Change LOC, Dizziness, Headache Complete sys rev & neg: except as marked. Physical Exam Initial Vital Signs Vital Signs (First) Date Time Temp Pulse Resp B/P Pulse Ox O2 Delivery O2 Flow Rate FiO2 10/05/16 19:35 36.9 63 17 191/82 97 Room Air Initial VS: Reviewed General/Constitutional: Well-developed, Well-nourished Head / Eyes: Atraumatic, Normocephalic, PERRL ENT: Mucous membranes moist, Conjunctiva normal, No scleral icterus Neck: Supple, Non-tender, Full range of motion Respiratory: Breath sounds normal, Clear to auscultation, No respiratory distress Cardiovascular: Regular rate & rhythm, Heart sounds normal, Intact distal pulses Abdomen / GI: Soft, Non-tender, No guarding, No rebound, No distention Skin: Warm, Dry, No cyanosis Neurologic: Alert, Oriented, Nonfocal Upper Extremity / MS: Atraumatic, Inspection NL, No swelling, Non-tender Right shoulder with full painless ROM Interpretation & Diagnostics Lab Results Interpretation Result Diagram: 10/05/16195410/05/161954 Test 10/05/16 19:35 10/05/16 19:55 Hold Urine Received (Received) White Blood Count 9.1th/mm3 (3.8-10.1) Red Blood Count 4.10mil/mm3 (4.40-5.80) Hemoglobin 12.8g/dL (13.8-17.2) Hematocrit 38.9% (41.0-50.0) Mean Corpuscular Volume 94.9fL (81-100) Mean Corpuscular Hemoglobin 31.2pg (27.0-35.0) Mean Corpuscular Hemoglobin Concent 32.9% (32.0-37.0) Red Cell Distribution Width 12.3% (12.3-15.4) Platelet Count 245bil/L (150-400) Neutrophils (%) (Auto) 53.6% (40-74) Lymphocytes (%) (Auto) 30.7% (14-46) Monocytes (%) (Auto) 12.0% (4-12) Eosinophils (%) (Auto) 3.2% (0-5) Basophils (%) (Auto) 0.4% (0-3) Sodium Level 139mEq/L (134-144) Potassium Level 4.1mEq/L (3.5-5.2) Chloride Level 101mEq/L (97-108) Carbon Dioxide Level 27mmol/L (18-29) Blood Urea Nitrogen 14mg/dL (8-27) Creatinine 1.12mg/dL (0.76-1.27) Estimat Glomerular Filtration Rate 66mL/min (>59) Glucose Level 111mg/dL (60-99) Calcium Level 9.3mg/dL (8.5-10.1) Magnesium Level 1.9mg/dL (1.6-2.6) Total Bilirubin 0.3mg/dL (0.0-1.2) Aspartate Amino Transf (AST/SGOT) 16U/L (0-50) Alanine Aminotransferase (ALT/SGPT) 13U/L (0-44) Alkaline Phosphatase 90U/L (25-160) Total Protein 7.2g/dL (6.4-8.4) Albumin 3.9g/dL (3.4-5.0) Hold José Top Tube Received (Received) ECG Interpretation ECG Interpretation: LBBB SR - 64 Time: 19:42 Interpreted by: ED physician X-Ray Chest Interpretation Chest Xray Interpretation: IMPRESSION: No acute cardiopulmonary disease process. Dictated by: Yaritza Watson MD, PhD on 10/05/2016 at 19:58 View: Portable, 1 view Interpretation / Wet Read by: Interpret - Radiologist Re-Eval/Medical Decision Med Decision/Clinical Course Atypical chest pain and shoulder pain status post cath. First troponin is indeterminant. I consulted with our body hanger. Will admit to observation for serial troponins. Source of Hx: Old records Re-Evaluation/Progress : Time of Eval: 22:01 Re-Evaluation/Progress Note: Pt is rechecked and informed of his labs and imaging results and the plan to admit him to the hospital at this time. He understands and agrees, all qeustions are addressed. Consultation #1: Referral / Consult Name: Aamir Barboza MD Consulted With: Cardiology Call Returned at: 21:04 Flight Manager: Will see patient, Agrees with eval, Agrees with plan Consultation #2: Referral / Consult Name: Miranda Salazar DO Consulted With: Hospitalist Call Returned at: 22:00 Flight Manager: Will see patient, Agrees with plan, Accepts admit Counseled Regarding: Diagnosis, Lab results, Need for admission Discharge & Departure Impression: Primary Impression: Atypical chest pain Disposition: ADMITTED TO HOSPITAL Discharge Condition All VS Reviewed: Yes Condition: Stable Referrals: Vin Goddard MD (PCP) Paul Attestation Portions of this note were transcribed by Emely Walters. I, Dr. Romo personally performed the history, physical exam and medical decision-making; I reviewed and confirmed the accuracy of the information in the transcribed note. Signed by: Paul Rivera, 10/05/2016 22:15 copies to: Vin Goddard MD, Todd P DO October 05, 2016 19:37 FINN WALTERS October 05, 2016 19:52 FINN WALTERS October 05, 2016 19:52
--- NOTE | 2016-10-05 20:00 | DRSVH ---
PROCEDURE: X-RAY CHEST ONE VIEW, PORTABLE ([id number]) INDICATIONS: Chest Pain TECHNIQUE: One view of the chest was acquired. COMPARISON: [facility], CR, XR CHEST 2VW, 10/03/2016, 8:32. FINDINGS: Surgical changes and devices: None. Lungs and pleura: No pleural effusions or pneumothorax. Lungs are clear. Mediastinum: Mediastinal contours appear normal. Heart size is normal. Large hiatal hernia again no justin. Bones and chest wall: No suspicious bony lesions. Overlying soft tissues appear unremarkable. IMPRESSION: No acute cardiopulmonary disease process. Dictated by: Yaritza Watson MD, PhD on 10/05/2016 at 19:58 Approved by: Yaritza Watson MD, PhD on 10/05/2016 at 19:59
[2016-10-05 20:16] LABS: BASOPHILS % (AUTO) 0.4 % (0-3); EOSINOPHILS % (AUTO) 3.2 % (0-5); Mean Corpuscular Hemoglobin 31.2 pg (27.0-35.0); Mean Corpuscular Volume 94.9 fL (81-100); NEUTROPHILS % (AUTO) 53.6 % (40-74); Platelet Count 245 bil/L (150-400)
[2016-10-05 20:36] LABS: TROPONIN T 0.014 ug/L (0.0-0.011)
[2016-10-05 20:47] LABS: Magnesium 1.9 mg/dL (1.6-2.6)
[2016-10-05 21:47] VITALS: BP 155/76; PULSE 59; RESP 17; O2SAT 94
[2016-10-05] MEDS: 0.9% Sodium Chloride 1,000 ML IV SCH (22:28)
[2016-10-05] MEDS ORDERED: Senna-Docusate 8.6-50 mg Tablet PO PRN (22:30)
[2016-10-05] MEDS ORDERED: Polyethylene Glycol (PEG) 17 Gm Powder PO PRN (22:30)
[2016-10-05] MEDS ORDERED: Alum-Mag Hydrox-Simeth 30 mL Suspension PO PRN (22:30)
[2016-10-05] MEDS ORDERED: Ondansetron 2 mg/mL 2 mL Inj IVPUSH PRN (22:30)
[2016-10-05] MEDS ORDERED: Nitroglycerin 2% 1 Gm Ointment TOPICAL ONE (22:50)
[2016-10-05 23:05] VITALS: BP 170/77; PULSE 60; RESP 18; O2SAT 94
--- NOTE | 2016-10-05 23:33 | PCM.HPMED ---
Subjective Date of Service October 05, 2016 Primary Provider: Admitting Physician: Miranda Salazar DO Primary Care Physician: Vin Goddard MD Attending Physician: Miranda Salazar DO Admit Status: From the Emergency Department Chief Complaint: Right shoulder pain History of Present Illness: Mr. Powell is an 86-year-old male with history of hypertension, coronary artery disease, hyperlipidemia, obstructive sleep apnea, hypothyroidism, and gastroesophageal reflux disease who presented to the emergency department via EMS complaining of right shoulder pain. He was recently admitted to [facility] and underwent a left heart catheterization with coronary angiogram with percutaneous intervention on the and discharged on the , (He had balloon angioplasty and stenting to the mid right coronary artery and to the mid circumflex artery.). Patient initially reports sitting at home with sudden onset 10 out of 10, sharp right shoulder pain. He also states that he was moving his arm around and when the pain started he had right arm drop. He denies numbness tingling, weakness, radiating pain and just reports pinpoint pain in his right shoulder. He also reports new onset very mild chest pain since arriving at the emergency department roughly 3 episodes. He did not tell the emergency department doc about it. He reports 1 out of 10 very mild "heart pain." His is very astute to correct him when he reported one event however she said that he complained about at 3 times. He did not have this cardiac pain before his visit to the emergency department. They were very concerned that this was a continuation of cardiac pain second to MD, and therefore called EMS. He denies headache, syncope, diaphoresis, fever, chills, nausea, vomiting, chest pain, shortness of breath, abdominal pain, diarrhea, dysuria. In the emergency department on admission patient's temperature was 36.9 C, pulse 63, respiratory rate 17, blood pressure 191/82, pulse ox 97 on room air. During the interview patient's blood pressure was 187/146 awaiting remeasure. White count on admission 9.1, red blood cells 4.1, hemoglobin 12.8, hematocrit 38.9, platelets 245, neuts 53%. Sodium 139 potassium 4.1 chloride 101 carbon dioxide 27, creatinine 1.12, glucose 111, magnesium 1.9, alkaline phosphatase 90. Troponin 0.014. EKG showed In the emergency department the patient received Nitropaste for mild cardiac pain and elevated blood pressure. Review of Systems: Constitutional: Negative for fatigue, diaphoresis. Respiratory: Negative for shortness of breath Cardiovascular: Reports very mild chest pain. Denies: Palpitations. GI: Diarrhea. Reports constipation. GI: Denies: Nausea, vomiting. Skin: Denies fever, chills. Neurologic: Denies: Dizziness, Lightheaded Complete sys rev & neg: except as marked. Allergies Coded Allergies: No Known Allergies (Unverified , 10/05/16) Home Medications Aspirin Chew (Aspirin Chew) 81 Mg Chew 81 MG PO DAILYWD (Reported) Atorvastatin Calcium (Atorvastatin Calcium) 40 Mg Tablet 40 MG PO DAILY Prescribed by: MONET MILES DO Clopidogrel (Clopidogrel) 75 Mg Tablet 75 MG PO DAILY Prescribed by: MONET MILES DO Levothyroxine (Synthroid) 125 Mcg Tablet 125 MCG PO QAM (Reported) Lisinopril (Lisinopril) 20 Mg Tablet 20 MG PO BID (Reported) Metoprolol Succinate ER (Metoprolol Succinate ER) 25 Mg Tab.er.24h 12.5 MG PO DAILY Prescribed by: MONET MILES DO Omeprazole (Omeprazole) 20 Mg Tablet.dr 20 MG PO BIDWM (Reported) As needed Acetaminophen (Acetaminophen) 500 Mg Tablet 1,000 MG PO Q6H PRN PRN For Pain ( Reported) Nitroglycerin SL (Nitroglycerin SL) 0.4 Mg Tab.subl 0.4 MG SL Q5MIN PRN PRN For Chest Pain 1 tab under tongue at onset chest pain. Call doctor. Repeat every 5 min if pain persists x total of 3 doses in 15 min Prescribed by: TIFFANY CUNNINGHAM DO [facility] Coronary disease with reportedly abnormal Lexiscan stress test April 2015 with a moderate sized area of ischemia involving the inferior wall, EF 52% Hypertension Hyperlipidemia New-onset left bundle branch block September 2016 sleep apnea on CPAP Hypothyroidism GERD History of "metabolic syndrome" Surgical History Cholecystectomy Hernia x2 Knee and foot ankle Family History Father had colon cancer Social History Occupation: retired from [employer] Hx Alcohol Use: No Hx Substance Use: No Smoking Status: Former Smoker (([id number] history, patient smoked from the age of 20 to 35)) Exam Vital Signs Vital Sign - Last Date Time Temp Pulse Resp B/P Pulse Ox O2 Delivery O2 Flow Rate FiO2 10/05/16 21:47 59 17 155/76 94 Room Air 10/05/16 19:35 36.9 Exam General: Elderly man sitting comfortably in bed, No acute distress, well- developed, well-nourished, appropriately interactive HEENT: Normocephalic, atraumatic. External ears without defect. Pupils equal, round, and reactive to light and accommodation. Anicteric sclerae, moist conjunctivae, and no lid lag. Neck: Supple with full range of motion. Cardiovascular: Regular rate and rhythm with II/ systolic ejection murmurs with radiation to neck, No rubs or gallops appreciated Pulmonary: Clear to auscultation bilaterally with no crackles, wheezes, or rhonchi. Normal respiratory effort with no use of accessory muscles. Abdomen: Umbilical hernia. Bowel tones present. Soft, nontender, nondistended. Extremities: No clubbing, cyanosis, or edema appreciated. Skin: Mild ecchymosis at right femoral access site without palpable hematoma or thrill. Normal temperature, turgor, and texture; no rash, ulcers, or subcutaneous nodules appreciated. Neurological: Cranial nerves grossly intact. No known gait impairment. Psychiatric: Normal mood and affect. Alert and oriented to person, place, and time. Musculoskeletal: Patient had pinpoint tenderness with reproducible pain inferior to the bicipital groove on his right shoulder. Lab and Diagnostics Result Diagram: 10/05/16195410/05/161954 Assessment & Plan Mr. Powell is an 86-year-old male with history of hypertension, coronary artery disease, hyperlipidemia, obstructive sleep apnea, hypothyroidism, and gastroesophageal reflux disease who presented to the emergency department via EMS complaining of right shoulder pain. He was recently admitted to [facility] and underwent a left heart catheterization with coronary angiogram with percutaneous intervention on the and discharged on the , (He had balloon angioplasty and stenting to the mid right coronary artery and to the mid circumflex artery.). Patient initially reports sitting at home with sudden onset 10 out of 10, sharp right shoulder pain. He also states that he was moving his arm around and when the pain started he had right arm drop. He denies numbness tingling, weakness, radiating pain and just reports pinpoint pain in his right shoulder. He also reports new onset very mild chest pain since arriving at the emergency department roughly 3 episodes. He did not tell the emergency department doc about it. He reports 1 out of 10 very mild "heart pain." He states that it does not radiate nor is it aggravated or relieved by anything it is intermittent in nature and brief. His is very astute to correct him when he reported one event however she said that he complained about at 3 times. He did not have this cardiac pain before his visit to the emergency department. They were very concerned that this was a continuation of cardiac pain second to MD, and therefore called EMS. He denies headache, syncope, diaphoresis, fever, chills, nausea, vomiting, chest pain, shortness of breath, abdominal pain, diarrhea, dysuria. 1. Chest pain, present on admission. Active. - Patient underwent cardiac cath October 02 and was discharged on the . Left heart catheterization with coronary angiogram with percutaneous intervention. He had balloon angioplasty and stenting to the mid right coronary artery and to the mid circumflex artery. - He initially called EMS for shoulder pain which turns out to be most likely related to biceps tendinitis. However he is now reporting several episodes of pain directly over his heart, Very mild, 1 out of 10 and sharp. - Nitroglycerin was available as needed for chest pain and morphine as needed for chest pain - Continued home aspirin 81 mg daily, atorvastatin 40 mg daily at bedtime, lisinopril 20 mg twice a day, Plavix 75 mg daily, metoprolol 25 mg daily. - Previous Hemoglobin A1c 6.2% and lipid panel showed LDL 40, HDL 35 - Sublingual nitroglycerin PRN pain. - EKG normal sinus rhythm with left bundle branch block. No ST elevation or depression noted. - Remote telemetry on. - Nitro paste administered in the emergency department. - Cardiology, Dr. Barboza has been contacted and consulted. - Initial troponin was 0.014. Continue to trend. We will contact cardiology if it continues to rise. 2. Essential hypertension, present on admission. Active. - Continued lisinopril 20 mg twice a day - Metoprolol succinate 12.5 mg once daily - Patient's blood pressure was abnormally high in the emergency department. Was recorded as 180/147, awaiting repeat. Nitropaste given. 3.Obstructive sleep apnea on CPAP, chronic. -Continued CPAP 4. Hyperlipidemia, chronic. - Lipid panel as above - Increased atorvastatin to 40 mg at bedtime 5. Hypothyroidism, chronic. - TSH within normal limits - Continued levothyroxine 125 g in the evening 6. Gastroesophageal reflux disease, chronic. -2 view chest x-ray showed a large hiatal hernia on previous admit. - Continued omeprazole 20 mg twice a day Bilateral inguinal hernia, chronic. Acetaminophen for mild pain when necessary. Bowel regimen Senna and MiraLAX scheduled and PRN. Zofran when necessary for nausea and vomiting. SubQ heparin held for now. SCDs in place. Disposition: Patient is admitted under observation status. Discharge is dependent upon troponins and cardiology. Discharge to home when medically stable. Pain Evaluation: Adequate Pain Control Resuscitation Status: CPR: Attempt Resuscitation Attending Statement The patient was seen and examined together with house staff on 10/05/2016 and I agree with the history, exam and plan as outlined in the note above. RODRIGO MCHUGH DO October 05, 2016 23:01 Miranda Salazar DO October 06, 2016 05:40
[2016-10-05 23:53] VITALS: PULSE 59
[2016-10-06 00:09] VITALS: BP 171/92; PULSE 62; RESP 18; O2SAT 95
[2016-10-06] MEDS ORDERED: ATOR40TA69 PO (00:25)
[2016-10-06] MEDS: Sodium Chloride LOK Flush 10 mL Syringe IVFLUSH SCH ×2 (01:00→08:15)
--- NOTE | 2016-10-06 02:33 | NUR ---
Admit Admitted [place] ED [place] [facility] [place] Upon arrival, pt is alert and oriented, denies ches pain, sob, n/v or abd discomfort. Reports that prior to going up to the floor pt was having right upper chest and shoulder pain. Pt's BP: 171/92 HR: 62 RR: 18 T: 36.7 and 95% on RA. Noted nitro paste on pt's left chest. Will continue to monitor.
[2016-10-06 04:57] VITALS: BP 114/63; PULSE 56; RESP 20; O2SAT 93
[2016-10-06 09:44] VITALS: PULSE 70
[2016-10-06 10:12] VITALS: BP 122/69; PULSE 58; RESP 18; O2SAT 92
[2016-10-06] MEDS: 0.9% Sodium Chloride 1,000 ML IV SCH (10:56)
--- NOTE | 2016-10-06 11:06 | NUR ---
Case Management: [employer] and Medicare Part D pamphlet delivered and explained to pt. and spouse. Original placed in pt. chart and copy left at bedside. Cindi Low RN
[2016-10-06] MEDS ORDERED: Senna-Docusate 8.6-50 mg Tablet PO PRN (11:30)
[2016-10-06] MEDS ORDERED: Polyethylene Glycol (PEG) 17 Gm Powder PO PRN (11:30)
[2016-10-06] MEDS ORDERED: 0.9% Sodium Chloride 1,000 ML IV SCH (11:30)
[2016-10-06] MEDS ORDERED: Alum-Mag Hydrox-Simeth 30 mL Suspension PO PRN (11:30)
[2016-10-06] MEDS ORDERED: Ondansetron 2 mg/mL 2 mL Inj IVPUSH PRN (11:30)
[2016-10-06 12:48] LABS: Mean Corpuscular Hemoglobin 30.7 pg (27.0-35.0); Mean Corpuscular Volume 93.7 fL (81-100)
--- NOTE | 2016-10-06 14:10 | NUR ---
Ambulation Pt. walked one big loop in the hallway (400'). No chest pain related to exertion/activity. He is independent with ADLs and ambulation.
--- NOTE | 2016-10-06 14:51 | NUR ---
Social Work-initial assessment/ Readiness for Discharge: Data:See initial assessment. Pt is an 86 y/o male who was admitted on 10/05/16 for atypical chest pain, elevated troponin per H&P. Pt's insurance is [employer] and PCP is Vin Goddard MD. EMR Reviewed. Pt's readmission score is not available. SW met with pt and Shala at bedside to discuss discharge planning, SW role explained. Pt is alert and oriented x3. Pt resides at home with in a single level home where pt remains independent with basic ADLs. Pt uses no DME at baseline and drives POV. Pt has no HH or SNF history. Pt has completed DPOA/ advanced directive and copies are on file with the hospital. Pt has no halfway care or VA benefits. Per morning rounds pt is possibel to discharge later today and is up independent in room. Pt's family to provide transport home at discharge. SW provided phone number and plan on white board in room. SW will continue to follow. Assessment:Pt who resides at home with and is independent at baseline. Plan:Pt to likely discharge home with no needs via POV. SW will continue to follow. ANNIE Mayo Addendum: 10/06/16 at 1454 by HEATH ANGUIANO Amended: Links added.
[2016-10-06 15:02] VITALS: BP 145/85; PULSE 69; RESP 18; O2SAT 94
--- NOTE | 2016-10-06 15:29 | NUR ---
SW - Discharge Data: Pt is on day 1 of hospitalization for atypical chest pain, elevated troponin. EMR reviewed. Pt is medically cleared for discharge and is up independent in room. Pt to discharge home via in POV. No further needs assessed. Assessment: Pt who is independent at baseline Plan: Pt to discharge home via POV with no needs assessed. ANNIE Mayo
--- NOTE | 2016-10-06 15:34 | PCM.DIMED ---
Discharge Instructions Date of Service October 06, 2016 Dates of Hospitalization October 05, 2016 at 22:33 Discharge Diagnosis Discharge Diagnosis # Acute chest pain, present on admission. Resolved # Acute right shoulder pain, likely related to biceps tendinitis, present on admission. Improving. # Chronic essential hypertension, present on admission. Under control. # Obstructive sleep apnea on CPAP, chronic. # Hyperlipidemia, chronic. # Hypothyroidism, chronic. # Gastroesophageal reflux disease, chronic. Diet Discharge Diet: Low fat, Low Sodium, Heart Healthy Activity Discharge Activity: No restrictions Call your provider Call your provider for: Fever or Chills, Shortness of breath, Bleeding, Chest pain, Vomitting Patient Instructions Patient Instructions Seek immediate medical attention if any new or worsening signs or symptoms occur. If continue to have black/tarry appearing stool, especially if associated with lightheadedness, dizziness, or abdominal pain, hold off on taking Aspirin and Plavix and instead seek immediate medical attention. Follow-up plan 1. Followup with primary care provider in 2-4 days 2. Followup with your salad bar clerk as previously planned. Follow-up Provider: Vin Goddard MD Provider: Uri Lawson MD, Masoud October 06, 2016 15:34
[2016-10-06] MEDS ORDERED: Sodium Chloride LOK Flush 10 mL Syringe IVFLUSH SCH (16:30)
--- NOTE | 2016-10-06 20:24 | PCM.DC.MED ---
Discharge Summary Date of Service October 06, 2016 Dates of Hospitalization Date of Hospital Admission October 05, 2016 at 22:33 Date of Discharge: October 06, 2016 Providers: Admitting Physician: Miranda Salazar DO Primary Care Physician: Vin Goddard MD Attending Physician: Miranda Salazar DO Diagnosis at Time of Discharge Diagnosis at Time of Discharge # Acute chest pain, present on admission. Resolved # Acute right shoulder pain, likely related to biceps tendinitis, present on admission. Improving. # Chronic essential hypertension, present on admission. Under control. # Obstructive sleep apnea on CPAP, chronic. # Hyperlipidemia, chronic. # Hypothyroidism, chronic. # Gastroesophageal reflux disease, chronic. Procedures XRay, CTs & MRIs Date of Service: 10/05/161935 PROCEDURE: X-RAY CHEST ONE VIEW, PORTABLE ([id number]) IMPRESSION: No acute cardiopulmonary disease process. Dictated by: Yaritza Watson MD, PhD on 10/05/2016 at 19:58 Approved by: Yaritza Watson MD, PhD on 10/05/2016 at 19:59 Brief History As noted in H&P by Dr. Ceja: Mr. Powell is an 86-year-old male with history of hypertension, coronary artery disease, hyperlipidemia, obstructive sleep apnea, hypothyroidism, and gastroesophageal reflux disease who presented to the emergency department via EMS complaining of right shoulder pain. He was recently admitted to [facility] and underwent a left heart catheterization with coronary angiogram with percutaneous intervention on the and discharged on the , (He had balloon angioplasty and stenting to the mid right coronary artery and to the mid circumflex artery.). Patient initially reports sitting at home with sudden onset 10 out of 10, sharp right shoulder pain. He also states that he was moving his arm around and when the pain started he had right arm drop. He denies numbness tingling, weakness, radiating pain and just reports pinpoint pain in his right shoulder. He also reports new onset very mild chest pain since arriving at the emergency department roughly 3 episodes. He did not tell the emergency department doc about it. He reports 1 out of 10 very mild "heart pain." His is very astute to correct him when he reported one event however she said that he complained about at 3 times. He did not have this cardiac pain before his visit to the emergency department. They were very concerned that this was a continuation of cardiac pain second to ID, and therefore called EMS. He denies headache, syncope, diaphoresis, fever, chills, nausea, vomiting, chest pain, shortness of breath, abdominal pain, diarrhea, dysuria. In the emergency department on admission patient's temperature was 36.9 C, pulse 63, respiratory rate 17, blood pressure 191/82, pulse ox 97 on room air. During the interview patient's blood pressure was 187/146 awaiting remeasure. White count on admission 9.1, red blood cells 4.1, hemoglobin 12.8, hematocrit 38.9, platelets 245, neuts 53%. Sodium 139 potassium 4.1 chloride 101 carbon dioxide 27, creatinine 1.12, glucose 111, magnesium 1.9, alkaline phosphatase 90. Troponin 0.014. EKG showed In the emergency department the patient received Nitropaste for mild cardiac pain and elevated blood pressure. Hospital Course # Chest pain, present on admission. Mild and resolved. - Trop mildly elevated on admission which normalized on repeat. - Discussed with his financial market dealer Dr. Lawson and given patient asymptomatic with ambulation during this hospital further followup by cardiology deferred to outpatient at this time. # He initially called EMS for shoulder pain which turns out to be most likely related to biceps tendinitis. - Continue with supportive care - By day of d/c patient denies any further pain and noted to have full range of motion in his right shoulder and arm - Further followup by PCP as outpatient # Essential hypertension, present on admission. - Continued lisinopril 20 mg twice a day - Metoprolol succinate 12.5 mg once daily # Obstructive sleep apnea on CPAP, chronic. -Continued CPAP # Hyperlipidemia, chronic. - Lipid panel as above - Increased atorvastatin to 40 mg at bedtime # Hypothyroidism, chronic. - TSH within normal limits - Continued levothyroxine 125 g in the evening # Gastroesophageal reflux disease, chronic. - 2 view chest x-ray showed a large hiatal hernia on previous admit. - Continued omeprazole 20 mg twice a day Exam Vital Signs (Last) Date Time Temp Pulse Resp B/P Pulse Ox O2 Delivery O2 Flow Rate FiO2 10/06/16 15:02 36.6 69 18 145/85 94 Room Air Exam by day of d/c lungs CTA bilaterally. CV: RRR. Test 10/05/16 19:35 10/05/16 19:55 10/06/16 04:25 10/06/16 12:40 Hold Urine Received (Received) Neutrophils (%) (Auto) 53.6% (40-74) Lymphocytes (%) (Auto) 30.7% (14-46) Monocytes (%) (Auto) 12.0% (4-12) Eosinophils (%) (Auto) 3.2% (0-5) Basophils (%) (Auto) 0.4% (0-3) Magnesium Level 1.9mg/dL (1.6-2.6) Total Bilirubin 0.3mg/dL (0.0-1.2) Aspartate Amino Transf (AST/SGOT) 16U/L (0-50) Alanine Aminotransferase (ALT/SGPT) 13U/L (0-44) Alkaline Phosphatase 90U/L (25-160) Total Protein 7.2g/dL (6.4-8.4) Albumin 3.9g/dL (3.4-5.0) Hold José Top Tube Received (Received) Troponin T 0.010ug/L (0.0-0.011) White Blood Count 7.7th/mm3 (3.8-10.1) Red Blood Count 4.14mil/mm3 (4.40-5.80) Hemoglobin 12.7g/dL (13.8-17.2) Hematocrit 38.8% (41.0-50.0) Mean Corpuscular Volume 93.7fL (81-100) Mean Corpuscular Hemoglobin 30.7pg (27.0-35.0) Mean Corpuscular Hemoglobin Concent 32.7% (32.0-37.0) Red Cell Distribution Width 12.5% (12.3-15.4) Platelet Count 233bil/L (150-400) Sodium Level 137mEq/L (134-144) Potassium Level 5.0mEq/L (3.5-5.2) Chloride Level 102mEq/L (97-108) Carbon Dioxide Level 21mmol/L (18-29) Blood Urea Nitrogen 15mg/dL (8-27) Creatinine 0.95mg/dL (0.76-1.27) Estimat Glomerular Filtration Rate 80mL/min (>59) Glucose Level 151mg/dL (60-99) Calcium Level 9.1mg/dL (8.5-10.1) Discharge Medications Discharge Medications Aspirin Chew (Aspirin Chew) 81 Mg Chew 81 MG PO DAILYWD (Reported) Atorvastatin Calcium (Atorvastatin Calcium) 40 Mg Tablet 40 MG PO HS (Reported) Clopidogrel (Clopidogrel) 75 Mg Tablet 75 MG PO DAILY Prescribed by: MONET MILES DO Levothyroxine (Synthroid) 125 Mcg Tablet 125 MCG PO QAM (Reported) Lisinopril (Lisinopril) 20 Mg Tablet 20 MG PO BID (Reported) Metoprolol Succinate ER (Metoprolol Succinate ER) 25 Mg Tab.er.24h 12.5 MG PO DAILY Prescribed by: MONET MILES DO Omeprazole (Omeprazole) 20 Mg Tablet.dr 20 MG PO BIDWM (Reported) As needed Acetaminophen (Acetaminophen) 500 Mg Tablet 1,000 MG PO Q6H PRN PRN For Pain ( Reported) Nitroglycerin SL (Nitroglycerin SL) 0.4 Mg Tab.subl 0.4 MG SL Q5MIN PRN PRN For Chest Pain 1 tab under tongue at onset chest pain. Call doctor. Repeat every 5 min if pain persists x total of 3 doses in 15 min Prescribed by: TIFFANY CUNNINGHAM DO Followup Plan Disposition: Home Follow-up plan 1. Followup with primary care provider in 2-4 days 2. Followup with your financial market dealer as previously planned. Discharge Diet: Low fat, Low Sodium, Heart Healthy Discharge Activity: No restrictions Patient Instructions Seek immediate medical attention if any new or worsening signs or symptoms occur. If continue to have black/tarry appearing stool, especially if associated with lightheadedness, dizziness, or abdominal pain, hold off on taking Aspirin and Plavix and instead seek immediate medical attention. Follow-up Provider: Vin Goddard MD Provider: Uri Lawson MD Time spent 35 min copies to: Uri Lawson MD; Vin Goddard MD, Masoud October 06, 2016 20:24
== END 2016-10-06 16:23 | disposition home or self-care (01) ==
LOC: SED 19:35 → MPC 22:33
PROVIDERS: ADMIT Internal Medicine; ATTEND Internal Medicine
DX: R07.89 Other chest pain (principal); M25.511 Pain in right shoulder; I25.10 Atherosclerotic heart disease of native coronary artery without angina pectoris; I44.7 Left bundle-branch block, unspecified; I10 Essential (primary) hypertension; G47.33 Obstructive sleep apnea (adult) (pediatric); E78.5 Hyperlipidemia, unspecified; E03.9 Hypothyroidism, unspecified; K21.9 Gastro-esophageal reflux disease without esophagitis; E88.81 Metabolic syndrome and other insulin resistance; K40.20 Bilateral inguinal hernia, without obstruction or gangrene, not specified as recurrent; Z87.891 Personal history of nicotine dependence; Z95.5 Presence of coronary angioplasty implant and graft; Z79.82 Long term (current) use of aspirin
CPT/HCPCS: 36415; 71010; 80048; 80053; 83735; 84484; 85025; 85027; 93005; 99285; G0378

== ENCOUNTER 2016-12-04 10:24 | Emergency (ER) | payer MEDICARE, OTHER ==
[~2016-12-04] VITALS: Ht 182.9 cm; Wt 93.6 kg
[~2016-12-04 10:24] MED LIST changes: -ATRV10T PO; -CARV25TA2 PO; -OMEP20CA11 PO
[2016-12-04 10:27] VITALS: BP 151/80; PULSE 55; RESP 15; O2SAT 98
--- NOTE | 2016-12-04 10:37 | ED.REPORT ---
HPI-Chest Pain 40 and Over Date of Service Dec 04, 2016 ED Provider: Emmett Clarke MD Patient is an 86 year old male with a hx of CAD, HTN, hyperlipidemia, and borderline diabetes on Plavix who and presents to the ED complaining of intermittent chest pressure onset 1630 yesterday evening. His chest tightness is worse when laying down. Associated symptoms include SOB upon exertion. He denies nausea, vomiting, lightheadedness, dizziness, abdominal pain, or any other symptoms. Yesterday in cardiac rehab he walked 2 miles, finishing at 1430. He took nitro x1 and aspirin x3 at the onset of his symptoms without relief. His homicide squad lieutenant is Lulu. Patient reports his symptoms do not feel like a heart attack. Nursing Notes Stated Complaint: CHEST PAIN Chief Complaint: Chest Pain Nursing Notes Reviewed: Yes Allergies: Coded Allergies: No Known Allergies (Unverified , 10/05/16) Scheduled Aspirin Chew (Aspirin Chew) 81 Mg Chew 81 MG PO DAILYWD Atorvastatin Calcium (Atorvastatin Calcium) 40 Mg Tablet 40 MG PO HS Clopidogrel (Clopidogrel) 75 Mg Tablet 75 MG PO DAILY Levothyroxine (Synthroid) 125 Mcg Tablet 125 MCG PO QAM Lisinopril (Lisinopril) 20 Mg Tablet 20 MG PO BID Metoprolol Succinate ER (Metoprolol Succinate ER) 25 Mg Tab.er.24h 12.5 MG PO DAILY Omeprazole (Omeprazole) 20 Mg Tablet.dr 20 MG PO BIDWM Scheduled PRN Acetaminophen (Acetaminophen) 500 Mg Tablet 1,000 MG PO Q6H PRN PRN For Pain Nitroglycerin SL (Nitroglycerin SL) 0.4 Mg Tab.subl 0.4 MG SL Q5MIN PRN PRN For Chest Pain 1 tab under tongue at onset chest pain. Call doctor. Repeat every 5 min if pain persists x total of 3 doses in 15 min General Time Seen by MD: 10:35 Chief Complaint Chest pain Hx Obtained From: Patient, Spouse Arrived By: Walk-in Sudden in Onset?: Yes Onset Occurred: Yesterday Symptom Duration: Intermittent Risk Factors )( CAD Risk Stratification Hyperlipidemia Hypertension Known CADNo Diabetes mellitus Risk factors reviewed )( TAD Risk Stratification HypertensionNo High intensity wt lifting, No Marfan's syndrome, No Risk factors reviewed )( PE Risk Stratification Surgery Last 60 Days (62 days )No Immobilization, No , No Previous DVT, No Previous PE Risk factors reviewed Past Medical History Past Medical History Coronary disease with reportedly abnormal Lexiscan stress test April 2015 with a moderate sized area of ischemia involving the inferior wall, EF 52% Hypertension Hyperlipidemia New-onset left bundle branch block September 2016 sleep apnea on CPAP Hypothyroidism GERD History of "metabolic syndrome" [place] DM Past Surgical History Cholecystectomy Hernia x2 Knee and foot ankle Heart cath, L side Cardiac stents x2 Smoking History Former Smoker Social History Drug Use: Denies drug use Other Social History: Good social support, Ambulatory Status Independent Review of Systems Cardiovascular: Reports: Chest pain, Dyspnea on exertion GI: Denies: Abdominal pain, Nausea, Vomiting Neurologic: Denies: Dizziness, Lightheaded Complete sys rev & neg: except as marked. Physical Exam Initial Vital Signs Vital Signs (First) Date Time Temp Pulse Resp B/P Pulse Ox O2 Delivery O2 Flow Rate FiO2 12/04/16 10:27 35.9 55 15 151/80 98 Room Air Initial VS: Reviewed, Vital signs abnormal Head / Eyes: Atraumatic, Normocephalic Neck: Full range of motion Extremities: No swelling Skin: Warm, Dry Neurologic: Alert, Oriented, Nonfocal Psychiatric: Mood/affect normal, Behavior normal, Normal thought content General/Constitutional: Awake, Alert, No acute distress Respiratory / Chest: Breath sounds NL, Breath sounds = bilat, No respiratory distress Chest pain reproduced with L sided palpation Cardiovascular: Heart rate NL, Regular rhythm, Heart sounds NL, No gallop, No murmurs, No rubs Abdomen: Atraumatic, Soft, Non-tender Interpretation & Diagnostics Lab Results Interpretation Result Diagram: 12/04/16 1052 12/04/16 1052 Test 12/04/16 10:52 12/04/16 13:06 White Blood Count 6.7th/mm3 (3.8-10.1) Red Blood Count 4.16mil/mm3 (4.40-5.80) Hemoglobin 13.0g/dL (13.8-17.2) Hematocrit 39.9% (41.0-50.0) Mean Corpuscular Volume 95.9fL (81-100) Mean Corpuscular Hemoglobin 31.3pg (27.0-35.0) Mean Corpuscular Hemoglobin Concent 32.6% (32.0-37.0) Red Cell Distribution Width 12.8% (12.3-15.4) Platelet Count 230bil/L (150-400) Neutrophils (%) (Auto) 58.6% (40-74) Lymphocytes (%) (Auto) 27.8% (14-46) Monocytes (%) (Auto) 10.5% (4-12) Eosinophils (%) (Auto) 2.4% (0-5) Basophils (%) (Auto) 0.6% (0-3) D-Dimer 0.52mg/L FEU (<0.50) Sodium Level 140mEq/L (134-144) Potassium Level 4.3mEq/L (3.5-5.2) Chloride Level 102mEq/L (97-108) Carbon Dioxide Level 24mmol/L (18-29) Blood Urea Nitrogen 14mg/dL (8-27) Creatinine 1.13mg/dL (0.76-1.27) Estimat Glomerular Filtration Rate 65mL/min (>59) Glucose Level 102mg/dL (60-99) Calcium Level 9.4mg/dL (8.5-10.1) Magnesium Level 1.9mg/dL (1.6-2.6) Total Bilirubin 0.3mg/dL (0.0-1.2) Aspartate Amino Transf (AST/SGOT) 15U/L (0-50) Alanine Aminotransferase (ALT/SGPT) 11U/L (0-44) Alkaline Phosphatase 104U/L (25-160) Pro-B-Type Natriuretic Peptide 167.9pg/mL (0-486) Total Protein 7.3g/dL (6.4-8.4) Albumin 3.9g/dL (3.4-5.0) Troponin T 0.010ug/L (0.0-0.011) ECG Interpretation ECG Interpretation: sinus rate 55 LBBB Unchanged from prior Time: 10:45 Interpreted by: ED physician X-Ray Chest Interpretation Chest Xray Interpretation: IMPRESSION: Left basilar atelectasis. Otherwise, no radiographic evidence of acute cardiopulmonary pathology. Dictated by: Quinn Rhoades M.D. on 12/04/2016 at 11:13 Approved by: Quinn Rhoades M.D. on 12/04/2016 at 11:15 View: Portable, 1 view Interpretation / Wet Read by: Interpret - Radiologist CT Chest Interpretation IMPRESSION: 1. No pulmonary embolus. 2. Atherosclerosis including the coronary vasculature. 3. Large hiatal hernia. Dictated by: Yaritza Watson MD, PhD on 12/04/2016 at 13:02 Approved by: Yaritza Watson MD, PhD on 12/04/2016 at 13:09 Study type: CT pulm angiogram Interpretation / Wet Read by: Interpret - Radiologist Re-Eval/Medical Decision Med Decision/Clinical Course 86-year-old male history of CAD with 2 stents placed 2 months ago presenting with recurrent left-sided chest pain since last night. He reports a stinging in his left chest. It is not exertional and is not relieved by rest. It is worse with movement and while lying down. EKG shows left bundle-branch block which is not new. His troponins are negative 2. His d-dimer is mildly elevated. CT [place] chest showed no evidence of PE. His pain is reproducible on exam. It improved significantly with Toradol. I discussed with his homicide squad lieutenant who is also accordion tuner, Dr. Lawson, who believes the patient can be discharged home with follow-up with his primary doctor. Most likely etiology is musculoskeletal. Discussed with patient and he will return immediately should he have any new or worsening chest pain, shortness breath, nausea vomiting, dizziness lightheadedness, any other new or worsening symptoms. Time of Eval: 13:32 Re-Evaluation/Progress Note: Discussed lab and imaging results. Discussed plan for discharge. Patient understands and agrees with plan. All questions addressed at this time. Consultation : Referral / Consult Name: Uri Lawson MD Consulted With: Cardiology Call Returned at: 12:06 Note: Discussed pt's case. If repeat trop and CT nL, discharge pt Counseled Regarding: Diagnosis, Lab results, Need for follow-up, When/why to return to ED Discharge & Departure Primary Impression: Chest pain Chest pain type: unspecified Qualified Code: R07.9 - Chest pain, unspecified Disposition: Home Discharge Condition All VS Reviewed: Yes Condition: Stable Patient Instructions: Chest Pain (ED) Additional Instructions: Thank you for entrusting us with your care. Your labs, CT scan, EKG, and exam are reassuring. We did not find a dangerous cause for your symptoms at this time. Your homicide squad lieutenant Dr Lawosn agrees that you can be safely discharged at this time. Follow up with your primary doctor for re-evaluation within the next 2-3 days. Follow up with your homicide squad lieutenant as well. Return to the emergency department if you experience worsening chest pain, palpitations, shortness of breath, sweats, nausea, vomiting, lightheadedness, or any other symptoms. Referrals: Vin Goddard MD (PCP) Scribe Attestation Portions of this note were transcribed by Ramírez Murphy. I, Dr. Clarke personally performed the history, physical exam and medical decision-making; I reviewed and confirmed the accuracy of the information in the transcribed note. Signed by: Paul Ko, 12/04/16 at 1409 copies to: Vin Goddard MD, Ben M MD Dec 04, 2016 10:37 RAMÍREZ MURPHY Dec 04, 2016 10:46
[2016-12-04] MEDS ORDERED: Ketorolac 15 mg/mL Inj IVPUSH ONE (10:50)
[2016-12-04 11:07] LABS: BASOPHILS % (AUTO) 0.6 % (0-3); EOSINOPHILS % (AUTO) 2.4 % (0-5); MONOCYTES % (AUTO) 10.5 % (4-12); Mean Corpuscular Hemoglobin 31.3 pg (27.0-35.0); Mean Corpuscular Volume 95.9 fL (81-100); NEUTROPHILS % (AUTO) 58.6 % (40-74); Platelet Count 230 bil/L (150-400)
--- NOTE | 2016-12-04 11:17 | DRSVH ---
PROCEDURE: X-RAY CHEST ONE VIEW, PORTABLE ([id number]) INDICATIONS: chest pain TECHNIQUE: One view of the chest was acquired. COMPARISON: [facility], CR, XR CHEST 1VW (PORTABLE), 10/05/2016, 19:45. FINDINGS: Surgical changes and devices: Surgical clips RUQ. Lungs and pleura: No pleural effusions or pneumothorax. Left basilar atelectasis otherwise the lungs are clear. Mediastinum: Mediastinal contours appear normal. Heart size is normal. Bones and chest wall: No suspicious bony lesions. Overlying soft tissues appear unremarkable. IMPRESSION: Left basilar atelectasis. Otherwise, no radiographic evidence of acute cardiopulmonary pa thology. Dictated by: Quinn Rhoades M.D. on 12/04/2016 at 11:13 Approved by: Quinn Rhoades M.D. on 12/04/2016 at 11:15
[2016-12-04 11:23] LABS: TROPONIN T 0.01 ug/L (0.0-0.011)
[2016-12-04 11:34] LABS: Magnesium 1.9 mg/dL (1.6-2.6)
--- NOTE | 2016-12-04 13:11 | DRSVH ---
PROCEDURE: CT ANGIO CHEST PULMONARY EMBOLISM ([id number]) INDICATIONS: chest pain, sob, r/o pe TECHNIQUE: After the administration of intravenous contrast, 2 mm thick sections acquired from the pulmonary api joaquin to the posterior costophrenic angles. 3-dimensional maximum intensity projection (MIP) coronal a nd sagittal reformats were then acquired through the thorax. For radiation dose reduction, the follo wing was used: automated exposure control, adjustment of mA and/or kV according to patient size. COMPARISON: [facility], CR, XR CHEST 1VW (PORTABLE), 12/04/2016, 10:50. FINDINGS: Image quality: Excellent. Pulmonary arteries: Pulmonary arteries are normal in size, and demonstrate no intraluminal filling d efects to suggest central pulmonary embolism. Lungs and pleura: Atelectasis noted in the dependent portions of the lungs. No pleural effusions or p neumothorax. Central and peripheral airways are patent. Mediastinum: Heart size is normal, without pericardial effusion. Atherosclerotic calcifications are noted in the aorta, great vessels and the coronary vasculature. No mediastinal or hilar adenopathy. Thoracic aorta is normal in caliber and enhancement large hiatal hernia is noted. Bones and chest wall: No suspicious bony lesions. Spine degenerative disc disease and facet arthropa thy. Ribs and thoracic spine appear intact throughout. Thyroid gland is within normal limits. No axillary or supraclavicular adenopathy. Abdomen: Visualized upper abdominal solid organs appear normal in the early arterial phase of enhanc ement. IMPRESSION: 1. No pulmonary embolus. 2. Atherosclerosis including the coronary vasculature. 3. Large hiatal hernia. Dictated by: Yaritza Watson MD, PhD on 12/04/2016 at 13:02 Approved by: Yaritza Watson MD, PhD on 12/04/2016 at 13:09
[2016-12-04 14:13] VITALS: BP 150/68; PULSE 67; RESP 17; O2SAT 96
== END 2016-12-04 14:14 | disposition home or self-care (01) ==
LOC: SED 10:24
DX: R07.89 Other chest pain (principal); R06.02 Shortness of breath; I11.9 Hypertensive heart disease without heart failure; I25.10 Atherosclerotic heart disease of native coronary artery without angina pectoris; I44.7 Left bundle-branch block, unspecified; G47.30 Sleep apnea, unspecified; K21.9 Gastro-esophageal reflux disease without esophagitis; E03.9 Hypothyroidism, unspecified; E78.5 Hyperlipidemia, unspecified; R73.03 Prediabetes; Z95.5 Presence of coronary angioplasty implant and graft; Z90.49 Acquired absence of other specified parts of digestive tract; Z98.890 Other specified postprocedural states; Z79.82 Long term (current) use of aspirin; Z79.01 Long term (current) use of anticoagulants; Z87.891 Personal history of nicotine dependence
CPT/HCPCS: 36415; 71010; 71275; 80053; 83735; 83880; 84484; 85025; 85378; 93005; 96374; 99285; J1885; Q9967